=== PATIENT | female | born 1950 | race Caucasian/White ===

== ENCOUNTER → 2018-12-07 | Outpatient (CLI) | payer BC, SELFPAY ==
--- NOTE | 2018-12-07 10:51 | US_ITS ---
STUDY: RENAL ULTRASOUND - COMPLETE REASON FOR EXAM: Female, 68 years old. Recurrent UTI TECHNIQUE: Ultrasound evaluation of the kidneys was performed with real-time and static ernst-scale imaging. COMPARISON: None. FINDINGS: RIGHT KIDNEY: Normal location of the right kidney, which is normal in size. The right kidney measures 10.5 x 4.7 x 5 cm. There is a normal cortex of the right kidney. The renal cortex measures 1.6 cm. There is a rounded slightly heterogeneous hypoechoic exophytic mass in the apical renal cortex measuring 4 x 5 x 3.7 cm. There is vascularity.. There is a mid renal cortical calcification of 0.6 x 0.6 x 0.4 cm. There is no right hydronephrosis. DISTAL RIGHT URETER: There is non-visualization of the distal right ureter. There is no demonstrated right ureterovesical junction calculus. There is a visualized right ureteral jet. LEFT KIDNEY: Normal location of the left kidney, which is normal in size. The left kidney measures 10.5 x 5.3 x 5.5 cm. There is a normal cortex of the left kidney. The renal cortex measures 1.6 cm. There is no left renal mass or cyst. There are no left renal calculi. There is no left hydronephrosis. DISTAL LEFT URETER: There is non-visualization of the distal left ureter. There is no demonstrated left ureterovesical junction calculus. There is a visualized left ureteral jet. BLADDER: The distended urinary bladder has a volume of 229 ml. The empty urinary bladder has a volume of 31 ml. There is a normal wall thickness of the distended urinary bladder. There is no demonstrated mass within the urinary bladder. There are no demonstrated bladder calculi. US/Kidney and Bladder IMPRESSION: Right renal mass suspicious for neoplasm. Contrast imaging with CT dynamic for workup recommended. Nonobstructing right renal calculus. No evidence of hydronephrosis. Normal urinary bladder and visualized left kidney. Electronically Signed: Lindsey Low MD at 6:54 EDT , Service support ,
== END | disposition home or self-care (01) ==
LOC: US 10:49
PROVIDERS: Family Provider Family Medicine; PCP Family Medicine; Referring Provider Urology; Visit Provider Urology
DX: N39.0 Urinary tract infection, site not specified (principal)
CPT/HCPCS: 76770

== ENCOUNTER → 2018-12-31 12:28 | Outpatient (CLI) | payer BC, SELFPAY ==
[2018-12-08 13:45] LABS: Creatinine, Serum 0.89 mg/dL (0.55-1.02); EST Glomerular Filtration Rate 68 mL/min (>60); Est Glom Filt Rate - Afr Amer 82 mL/min (>60)
--- NOTE | 2018-12-31 12:43 | CT_ITS ---
HISTORY: RENAL MASS, right kidney EXAMINATION: CT Abdomen And Pelvis WO/W Contrast TECHNIQUE: Helically acquired images were obtained of the abdomen and pelvis both before and after IV contrast. A radiation dose optimization technique was used for this scan. IV Contrast dosage and agent: 100ml Isovue 300 Oral contrast: None. COMPARISON: Renal ultrasound 12/07/2018 FINDINGS: Lower thorax: No pleural effusion. Small hiatal hernia. Nonspecific mild mural thickening of the anterior wall of the gallbladder fundus. No gallstones seen. Mild fatty infiltration of the liver. Normal hepatic size and normal biliary system. Normal spleen. Fatty infiltration of the pancreas. Both kidneys are normal in position. Initial noncontrast images show no renal or ureteral calculi. Mid pole right kidney partly exophytic cortical mass which is solid and chest mildly heterogenous attenuation. The mass measures approximately 3.9 x 3.9 x 4 cm. The upper pole cortex of the left kidney shows a similar but smaller lesion which enhances and shows heterogenous attenuation. The left renal lesion is partly exophytic and measures 2.7 x 2.7 x 2.7 cm. Bilateral renal excretion of contrast without evidence of hydronephrosis or hydroureter. Adrenal glands are not enlarged. Abdominal aorta is atherosclerotic and is normal in caliber. No ascites or retroperitoneal lymph enlargement. GI tract: No obstruction. Constipation pattern. No pericolonic inflammatory changes. Pelvis: Normal uterine size with small calcified fibroids. No free fluid or lymph node enlargement. Normal urinary bladder. No free fluid or lymph node enlargement. Bones: No acute osseous abnormality. Posterior angulation of the coccyx compatible with chronic change. No suspicious bony lesion. Lower lumbar advanced facet joint arthritis. CT/CT Abd/Pelvis W/WO Contrast IMPRESSION: 1. Right renal midpole 4 cm cortical mass and left renal upper pole 2.7 cm cortical mass. Both masses are solid and enhance. 2. Negative urinary bladder. No hydronephrosis or obstructive uropathy. 3. Nonspecific mild mural thickening of the anterior wall of the gallbladder fundus. 4. Chronic findings include fatty liver, small hiatal hernia, and fibroid uterus. Individualized dose optimization techniques were used for this CT. at 0710 Reported and signed by: Brandon Alvarado MD Electronically Signed: Rogelio Chaves/05/04 at 7:08 EDT Tel , Service support ,
== END ==
PROVIDERS: Family Provider Family Medicine; PCP Family Medicine; Referring Provider Urology; Visit Provider Urology
DX: N28.89 Other specified disorders of kidney and ureter (principal)
CPT/HCPCS: 36415; 74178; 82565; Q9967

== ENCOUNTER → 2020-02-06 14:35 | Outpatient (CLI) | payer BC, SELFPAY ==
--- NOTE | 2020-02-06 14:42 | US_ITS ---
STUDY: RENAL ULTRASOUND - COMPLETE REASON FOR EXAM: Female, 69 years old. GROSS HEMATURIA TECHNIQUE: Ultrasound evaluation of the kidneys was performed with real-time and static ernst-scale imaging. COMPARISON: 12/07/2018 FINDINGS: RIGHT KIDNEY: Normal location of the right kidney, which is normal in size. The right kidney measures 9.3 cm. There is a normal cortex of the right kidney. The renal cortex measures 1.4 cm. 4.3 cm solid isoechoic mass of the lower pole right kidney worrisome for renal cell carcinoma in correlation with renal mass protocol CT is recommended. There are no right renal calculi. There is no right hydronephrosis. DISTAL RIGHT URETER: There is non-visualization of the distal right ureter. There is no demonstrated right ureterovesical junction calculus. There is a visualized right ureteral jet. LEFT KIDNEY: Normal location of the left kidney, which is normal in size. The left kidney measures 10.1 cm. There is a normal cortex of the left kidney. The renal cortex measures 1.7 cm. There is no left renal mass or cyst. There are no left renal calculi. There is no left hydronephrosis. DISTAL LEFT URETER: There is non-visualization of the distal left ureter. There is no demonstrated left ureterovesical junction calculus. There is a visualized left ureteral jet. BLADDER: The distended urinary bladder has a volume of 244 ml. The empty urinary bladder has a volume of ml. There is a normal wall thickness of the distended urinary bladder. There is no demonstrated mass within the urinary bladder. There are no demonstrated bladder calculi. US/Kidney and Bladder IMPRESSION: 4.3 cm solid mass of the lower pole the right kidney and correlation with renal mass protocol CT is recommended. Electronically Signed: Denver Gamez MD at 16:38 EDT Tel , Service support ,
== END ==
PROVIDERS: PCP Family Medicine; Visit Provider Urology
DX: R31.0 Gross hematuria (principal); R10.9 Unspecified abdominal pain
CPT/HCPCS: 76770

== ENCOUNTER 2021-08-12 18:25 | Inpatient (IN) | payer BC, MEDICARE, SELFPAY ==
[2021-08-12] VITALS (11 sets, daily range): BP systolic 108–152; BP diastolic 63–86; PULSE 63–74; RESP 18–22; TEMP 36.5–36.9; O2SAT 71–100; BMI 43.4; BMI 40.0
--- NOTE | 2021-08-12 18:28 | EDS_ITS ---
HPI History of Present Illness Chief Complaint: Chest Pain Informant: patient and EMS Narrative Narrative: History is focused on major points as Mail Truck Driver is almost ready for the patient. She started with anterior chest pressure at about 5:00. She had some dyspnea. She had some diaphoresis. No vomiting. She has never had this before. She has a history of high blood pressure but no diabetes. No known high cholesterol. No known family history of significant heart disease. She states her pain is still there but better. She was given 4000 of heparin, Brilinta aspirin by EMS prior to arrival. For that reason it was not repeated here. Nothing specifical ly has made her pain better or worse. It radiates a little bit up toward her shoulders. It does not go through to her back. It has not migrated. [facility] Medical History Hypertension Seizure Home Medications levetiracetam 1,000 mg PO DAILY 08/12/21 [History Last Taken Unknown] metoprolol succinate 25 mg PO DAILY 08/12/21 [History Last Taken Unknown] Allergy/AdvReac Type Severity Reaction Status Date / Time codeine Allergy Other Verified 08/12/21 18:33 Surgical History H/O knee surgery History of carpal tunnel surgery History of kidney surgery Social History Smoking Status: Never smoker ROS ROS ED Constitutional Constitutional ED: Denies fever(s) Eyes Eyes: Denies blurry vision or change in vision ENT ENT ED: Denies rhinorrhea Cardiovascular Cardiovascular: Denies as per HPI Respiratory/Chest Respiratory/Chest: Reports dyspnea; Denies cough Gastrointestinal Gastrointestinal: Denies abdominal pain, nausea or vomiting Genitourinary Genitourinary ED: Denies dysuria Musculoskeletal Musculoskeletal: Denies back pain, myalgias or neck pain Integumentary Denies rash Neurologic Neurologic: Denies headache(s) or paresthesias Endocrine Endocrinology: Denies polydipsia or polyuria Hematologic/Lymphatic Hematologic/Lymphatic: Denies easy bleeding or easy bruising Allergic/Immunologic Allergic/Immunologic ED: Denies mouth swelling or urticaria EXAM Physical Exam Const Positive well nourished and well developed Constitutional Narrative: Patient is in no acute distress but she does look like she had recent diaphoresis. General Appearance ED: well developed HEENT normocephalic and atraumatic Eyes General Eye ED: Negative for pale conjunctiva or scleral icterus Neck supple and no JVD Chest Wall inspection of chest normal and palpation of chest normal Resp normal respiratory effort Resp Narrative: I hear no basilar rales. Effort and Inspection: respiratory distress Auscultation: Negative for rales Cardio regular rate and regular rhythm GI normal to inspection, nondistended, normoactive bowel sounds, soft to palpation and non-tender Back/Spine no CVA tenderness Extremity normal to inspection Extremity Narrative: Good pulses x4. General Extremety ED: Negative for tenderness Neuro Sensorium / Orientation: awake, alert and other Psych mental status grossly normal Skin no rashes or lesions noted and no wounds Skin Narrative: Patient looks like she may have been diaphoretic recently but is no longer. Heart Score History: Highly Suspicious ECG: Significant ST-Depression Age: >/= 65 years Risk Factors: 1 or 2 Risk Factors Score: 7 MDM MDM MDM Narrative Medical decision making narrative: EMS had to transmitted her EKG. This had been seen prior to patient arrival. STEMI are already been called. We had consulted with them. They gave appropriate medications. Patient was in the department for short period of time until Mail Truck Driver was ready. I explained the procedure and the reasons for the expediting her care. She understood these. Her repeat EKG done here still does show a high lateral [place] with ST elevation in lead I and aVL with reciprocal changes in 3 and aVF. EKG Initial EKG: Comments: EKG done for chest pain read by me shows normal sinus rhythm with high lateral acute [place] changes with elevation in 1 and aVL with reciprocal depression in 3 and aVF. No ventricular ectopy. CT interval, QRS duration and QTc normal. Critical Care Time Critical Care Time: Yes Critical care time (excluding procedures): 30-74 minutes and - (Discussion with EMS, transmission to ops manager in discussion, discussion with hospitalist, discussion with patient regarding plan and illness. Total critical care time of 33 minutes.) Discharge Plan Dx/Rx/DC Orders Clinical Impression: ST elevation (STEMI) myocardial infarction Disposition Disposition: Acute Care Hospital [facility] Discharge Date/Time: 08/12/21 18:36
--- NOTE | 2021-08-12 19:01 | CM.ED ---
RENATA Note: Referral Source: STEMI Alert Referral Reason: STEMI Alert SW met with patient briefly prior to her going to cardiac cath technologist. Patient inquired about her and this brief writer stated that this brief writer will take patient's to cardiac cath technologist when he arrives. RENATA made triage staff aware of patient's being on his way to the ED and to contact brief writer. RENATA met with patient's , Hal. SW took Hal to the catheterization laboratory technician and provided emotional support. ED staff updated. Plan: admit to ICU Jenny ROSALES
--- NOTE | 2021-08-12 19:28 | EKG12_ITS ---
Test Reason : CP Blood Pressure : / mmHG Vent. Rate : 065 BPM Atrial Rate : 065 BPM P-R Int : 156 ms QRS Dur : 102 ms QT Int : 450 ms P-R-T Axes : 054 -07 009 degrees QTc Int : 468 ms Normal sinus rhythm Lateral injury pattern ACUTE IN / STEMI Abnormal ECG Confirmed by HEATHER NOGUERA, ALEXANDRE ([id number]), editor managing newspaper TOM SORENSON ([id number]) on 08/14/2021 11:44:02 AM Referred By: Pako Engel Confirmed By:ALEXANDRE ROMERO MD
--- NOTE | 2021-08-12 19:45 | EKG12_ITS ---
Test Reason : POST CATH Blood Pressure : / mmHG Vent. Rate : 070 BPM Atrial Rate : 070 BPM P-R Int : 160 ms QRS Dur : 090 ms QT Int : 432 ms P-R-T Axes : 039 028 066 degrees QTc Int : 466 ms Sinus rhythm with Premature atrial complexes Low voltage QRS Cannot rule out Anterior infarct , age undetermined Abnormal ECG Confirmed by HEATHER NOGUERA, ALEXANDRE ([id number]), scientific publications editor TOM SORENSON ([id number]) on 08/14/2021 12:20:58 PM Referred By: Pako Engel Confirmed By:ALEXANDRE ROMERO MD
--- NOTE | 2021-08-12 19:57 | CON.PCM.CA_ITS ---
Assessment & Plan Assessment/Plan (1) ST elevation (STEMI) myocardial infarction: QUALIFIERS: Involved coronary artery: LAD coronary artery Qualified Code(s): I21.02 - ST elevation (STEMI) myocardial infarction involving left anterior descending coronary artery PLAN: Status post drug-eluting stent to the LAD. We will keep the patient on aspirin, Brilinta, Coreg, statin. She does have LV dysfunction at this time. She appears to have had some renal issues in the past. We will hold off on the STU inhibitor's for now as a result. We will check a 2D echo this admission and if she has LV dysfunction she will need another evaluation in about 3 months. HPI Consult Data Date of Consult: 08/12/21 HPI Narrative HPI Narrative: KIRT MATHIS, is a 71 F who presents with chest pain. Patient was found to have ST elevation in lead I and aVL and a STEMI alert was called. She was brought emergently to the cardiac [employer] Plant Supervisor and underwent coronary angiography which revealed 95% stenosis in the mid LAD that was treated with a drug-eluting stent. Patient tolerated the procedure well. She is pain-free at the end of the procedure. She is being admitted to the CCU for further management of her ST elevation MT. Review of systems: All systems reviewed. All else is negative except that in the HPI. [facility] Medical History Hypertension Seizure Home Medications levetiracetam 1,000 mg PO DAILY 08/12/21 [History Last Taken Unknown] metoprolol succinate 25 mg PO DAILY 08/12/21 [History Last Taken Unknown] Allergy/AdvReac Type Severity Reaction Status Date / Time codeine Allergy Other Verified 08/12/21 18:33 Surgical History H/O knee surgery History of carpal tunnel surgery History of kidney surgery Social History Smoking Status: Never smoker Physical Exam Const alert and oriented x3 Orientation / Consciousness: awake HEENT normocephalic Eyes no scleral icterus Neck supple Resp normal respiratory effort Cardio regular rate Skin no rashes or lesions noted Neuro oriented x3 Psych mental status grossly normal Risk Stratification Risk Stratification Applicable: No Charges/Coding Visit Charges Inpatient E&M: 85970 Init Hosp L3 Objective Data Vital Signs: Vital Signs Temp Pulse Resp BP Pulse Ox 97.7 F L 64 18 152/86 H 97 08/12/21 18:36 08/12/21 18:36 08/12/21 18:36 08/12/21 18:36 08/12/21 18:36 Oxygen Delivery Method Room Air Weight: 237 lb 3.478 oz Body Mass Index (BMI) 43.4 Cardiology Labs/Tests Rhythm: EKG: ECHO: Stress Test: Cardiac Cath: PCI: CT Surgery: Holter monitor: EPS: PPM: CXR: Chest CT Scan:
--- NOTE | 2021-08-12 20:00 | ECHOD_ITS ---
Reason For Study: CAD Procedure This was a 2D Doppler, Color Flow transthoracic echocardiogram. The study was technically difficult. Exam performed portable in ICU/CCU. Left Ventricle Based upon the 2D echocardiographic images obtained there appears to be grossly normal left ventricular size, wall motion, and systolic function. The estimated ejection fraction is 55 %. Diastolic function is indeterminate. Right Ventricle Based upon the 2D echocardiographic images obtained there appears to be grossly normal right ventricular size and systolic function. Atria The left atrium is mildly enlarged. Normal right atrium. No doppler evidence for ASD. Mitral Valve There is no mitral annular calcification. Normal mitral valve. Mild (1+) mitral valve insufficiency. Tricuspid Valve Normal tricuspid valve. Mild tricuspid valve insufficiency. Right ventricular systolic pressure estimated to be 33 mmHg. Aortic Valve Trisinus/trileaflet aortic valve. Mild focal aortic valve calcification. Mild aortic stenosis. Pulmonic Valve The pulmonic valve is not well visualized. Trivial pulmonic valve insufficiency. Great Vessels Normal sized aortic root. Pericardium/Pleural Trivial pericardial effusion. There are no echocardiographic indications of cardiac tamponade. MMode/2D Measurements & Calculations LVIDd: 4.5 cm IVSd: 1.1 cm LVOT diam: 2.0 cm LVIDs: 3.0 cm LVPWd: 0.95 cm LVOT area: 3.1 cm2 RVDd: 3.6 cm FS: 31.7 % Ao root diam: 3.6 cm LAV(MOD-bp): 41.2 ml LA A4 area: 14.3 cm2 LAV(MOD-bp) Indexed: 20.8 ml/m2 LAV(MOD-sp2): 40.3 ml LAV(MOD-sp4): 35.3 ml LA dimension(2D): 4.2 cm RA A4 area: 11.1 cm2 Doppler Measurements & Calculations MV E max delvin: 90.2 cm/sec Lat Peak E' Delvin: 6.7 cm/sec Med Peak E' Delvin: 5.9 cm/sec MV A max delvin: 107.5 cm/sec E/E' lat: 13.4 E/E' med: 15.2 MV E/A: 0.84 MV V2 max: 106.8 cm/sec Ao V2 max: 193.2 cm/sec LV V1 max: 115.2 cm/sec MV max P.6 mmHg Ao max P.0 mmHg LV V1 max P.3 mmHg MV V2 mean: 64.7 cm/sec Ao V2 mean: 139.3 cm/sec LV V1 mean P.1 mmHg MV mean P.8 mmHg Ao mean P.5 mmHg LV V1 mean: 84.3 cm/sec MV V2 VTI: 33.7 cm Ao V2 VTI: 44.4 cm LV V1 VTI: 26.3 cm MVA(VTI): 2.4 cm2 JOSE MANUEL(I,D): 1.9 cm2 JOSE MANUEL(V,D): 1.9 cm2 SV(LVOT): 82.4 ml TR max delvin: 274.0 cm/sec MV P1/2t-pr_phl: 129.4 msec TR max P.0 mmHg ECHO/Echo Complete Interpretation Summary The study was technically difficult. Based upon the 2D echocardiographic images obtained there appears to be grossly normal left ventricular size, wall motion, and systolic function. The estimated ejection fraction is 55 %. The left atrium is mildly enlarged. Mild (1+) mitral valve insufficiency. Mild tricuspid valve insufficiency. Mild aortic stenosis. Trivial pulmonic valve insufficiency. Trivial pericardial effusion. There are no echocardiographic indications of cardiac tamponade. Right ventricular systolic pressure estimated to be 33 mmHg. Diastolic function is indeterminate. Ordering Physician: Pako Engel Referring Physician: Pako Engel Performed By: Linda Robin, [facility], RVT
[2021-08-12 21:07] LABS: Absolute Lymphocyte Count 1.19 X10^3/uL (0.83-4.51); Absolute Neutrophil Count 9.5 X10^3/uL (2.0-7.7); Basophil# 0.02 X10^3/uL; Basophil% 0.2 % (0-1); Eosinophil# 0.04 X10^3/uL; Eosinophils% 0.3 % (0-5); Hematocrit 33.3 % (37-47); Lymphocyte # 1.19 X10^3/ul (0.83-4.51); Lymphocyte % 10.4 % (19-41); Mean Corpuscular Hgb 29.6 pg (27.0-32.0); Mean Corpuscular Volume 89.5 fL (81-99); Mean Platelet Vol. 11.2 fl (6.2-12.0); Monocyte# 0.62 X10^3/uL; Monocyte% 5.4 % (0-10); NRBC Flagged by Analyzer 0 % (0-5); Neutrophil # 9.53 X10^3/uL (2.7-7.7); Neutrophil % 83.1 % (47-70); Platelet Count 264 K/mm3 (150-450); RBC Distribution Width CV 12.5 % (11.6-14.6); RBC Distribution Width SD 40.6 fl (35.1-43.9); Red Blood Count 3.72 M/mm3 (4.2-5.4); White Blood Count 11.5 K/mm3 (4.4-11.0)
[2021-08-12 21:15] LABS: International Normalized Ratio 1.3; Prothrombin Time (Protime)PT. 15.9 SECONDS (11.7-14.9)
[2021-08-12 21:24] LABS: Anion Gap 7 (5-15); BUN 25 mg/dL (7-18); Calcium,Total 8.8 mg/dL (8.5-10.1); Chloride 110 mmol/L (98-107); Creatinine, Serum 0.81 mg/dL (0.55-1.02); EST Glomerular Filtration Rate 75 mL/min (>60); Est Glom Filt Rate - Afr Amer 91 mL/min (>60); Estimated Creatinine Clearance 51.84 ml/min; Glucose 123 mg/dL (74-106); Potassium 3.7 mmol/L (3.5-5.1); Sodium Level 139 mmol/L (136-145); Troponin-I HS 5910 pg/mL (3.0-54.0)
[2021-08-12 21:37] LABS: Partial Thromboplast Time > 250.0 Seconds (24.1-36.2)
[2021-08-12] MEDS: Atorvastatin Calcium 40 MG Tablet PO (22:32)
[2021-08-12] MEDS: TICAGRELOR 90 MG TABLET PO (22:32)
[2021-08-12] MEDS: 0.9% Normal Saline 1,000 ML 100 ML IV (22:32)
[2021-08-12] MEDS: Carvedilol 3.125 MG TABLET PO (22:32)
[2021-08-12] MEDS: levETIRAcetam 750 MG Tablet 1500 MG PO (23:05)
[2021-08-13] VITALS (16 sets, daily range): BP systolic 100–129; BP diastolic 57–76; PULSE 53–77; RESP 10–21; TEMP 36.6–36.8; O2SAT 91–100
--- NOTE | 2021-08-13 00:17 | HP.PCM_ITS ---
HPI - General General Date of Admission: 08/12/21 HPI Narrative KIRT MATHIS, is a 71 F who presents emergency room with acute chest pain. Onset of symptoms began this evening at 5:00. When she states she felt a strong heaviness over her chest and called for her 's assistance. The pain was nonradiating substernal chest pain. 911 was called and patient was transported by ambulance to the hospital. She was diagnosed with ST elevation OR and transferred to the cardiac catheterization lab where a 95% occlusion of the left anterior descending artery was diagnosed and stented with a drug-eluting stent. Patient tolerated procedure well and was transferred to the ICU for follow-up c are. Patient has no chest pain at this time. She had no previous past cardiac history but does have a history of cryoablation surgery to both kidneys at [facility] sometime ago. Patient denies any shortness of breath, fever or chills and no nausea vomiting or diarrhea at this time. She is resting comfortably in the intensive care unit post procedure and will need routine cardiac rehab following her discharge. [facility] Medical History (Updated 08/13/21 @ 00:[address] Gary Alcantar MD) Hypertension Seizure Home Medications levetiracetam 1,000 mg PO DAILY 08/12/21 [History Last Taken Unknown] metoprolol succinate 25 mg PO DAILY 08/12/21 [History Last Taken Unknown] Allergy/AdvReac Type Severity Reaction Status Date / Time codeine Allergy Other Verified 08/12/21 18:33 Family History no significant family his Surgical History H/O knee surgery History of carpal tunnel surgery History of kidney surgery Social History (Updated 08/12/21 @ 21:06 by Amrik Hammonds) adopted: No household members: spouse housing: house number of children: 2 financial difficulty paying for basics: not applicable service: No current occupational status: retired current occupational exposures/hazards: No pets and animals: No leisure activities: other history of recent travel: No sexually active: Yes do you think of yourself as: straight/heterosexual Smoking Status: Never smoker ROS Constitutional Constitutional: Denies anorexia or chills ENT HEENT: Denies abnormal hearing Cardiovascular Cardiovascular: Reports chest pain Respiratory/Chest Respiratory/Chest: Denies cough Gastrointestinal Gastrointestinal: Denies abdominal pain Genitourinary Genitourinary: Denies dysuria Musculoskeletal Musculoskeletal: Denies back pain Integumentary Integumentary: Denies dry skin Neurologic Neurologic: Denies abnormal gait Psychiatric Psychiatric: Denies anxiety Vital Signs Vital Signs Vital Signs: 08/12/21 18:26 08/12/21 18:36 08/12/21 20:00 Temperature 97.7 F L 97.7 F L 98.4 F Temperature Source Oral Oral Temporal Pulse Rate 64 64 73 Pulse Strength Respiratory Rate 18 18 22 H Respiratory Effort Normal Non-Labored Respiratory Pattern Normal Blood Pressure 152/86 H 152/86 H 130/85 H Blood Pressure Mean 108 108 100 Blood Pressure Source Monitor Blood Pressure Position Semi-Fowlers Blood Pressure Location Left Arm Pulse Ox 95 97 97 Oxygen Delivery Method Room Air Room Air Room Air 08/12/21 20:04 08/12/21 20:20 08/12/21 20:30 Temperature Temperature Source Pulse Rate 74 69 Pulse Strength Respiratory Rate 20 H Respiratory Effort Respiratory Pattern Blood Pressure 151/81 H Blood Pressure Mean 104 Blood Pressure Source Monitor Blood Pressure Position Semi-Fowlers Blood Pressure Location Left Arm Pulse Ox 95 Oxygen Delivery Method Room Air Room Air 08/12/21 20:38 08/12/21 22:00 08/12/21 23:38 Temperature Temperature Source Pulse Rate 68 74 Pulse Strength Normal (2+) Respiratory Rate 19 H Respiratory Effort Respiratory Pattern Blood Pressure 126/74 H Blood Pressure Mean 91 Blood Pressure Source Monitor Blood Pressure Position Semi-Fowlers Blood Pressure Location Right Arm Pulse Ox 71 Oxygen Delivery Method Room Air Weight Weight: 218 lb 14.704 oz Body Mass Index (BMI) 40.0 Physical Exam Const oriented x3 General Appearance: cooperative HEENT head/scalp atraumatic Eyes PERRL Neck supple Lymph Lymphatic: no lymphadenopathy noted Resp normal respiratory effort and clear to auscultation bilaterally Cardio regular rate, regular rhythm, S1 normal heart sound and S2 normal heart sound GI normal to inspection, nondistended, normoactive bowel sounds Extremity no clubbing, cyanosis or edema Skin General Skin Exam: turgor normal Neuro CN's II-XII intact bilaterally Psych affect normal Results Lab / Micro Data Result Diagrams: 08/12/21 19:30 08/12/21 19:30 Labs: Laboratory Results - last 24 hr 08/12/21 19:30: WBC 11.5 H, RBC 3.72 L, Hgb 11.0 L, Hct 33.3 L, MCV 89.5, MCH 29.6, MCHC 33.0, RDW Std Deviation 40.6, RDW Coeff of Leena 12.5, Plt Count 264, MPV 11.2, Immature Gran % (Auto) 0.600, Neut % (Auto) 83.1 H, Lymph % (Auto) 10.4 L, [place] % (Auto) 5.4, Eos % (Auto) 0.3, Baso % (Auto) 0.2, Absolute Neuts (auto) 9.5 H, Absolute Lymphs (auto) 1.19, Nucleated RBC % 0 08/12/21 19:30: PT 15.9 H, INR 1.3, APTT > 250.0 H* 08/12/21 19:30: Sodium 139, Potassium 3.7, Chloride 110 H, Carbon Dioxide 22.0, Anion Gap 7, BUN 25 H, Creatinine 0.81, Estim Creat Clear Calc 51.84, Est GFR (MDRD) Af Amer 91, Est GFR (MDRD) Non-Af 75, BUN/Creatinine Ratio 31.0 H, Glucose 123 H, Calcium 8.8, Troponin I High Sens 5910 H* Assessment & Plan Assessment/Plan (1) ST elevation (STEMI) myocardial infarction: QUALIFIERS: Involved coronary artery: LAD coronary artery Qualified Code(s): I21.02 - ST elevation (STEMI) myocardial infarction involving left anterior descending coronary artery PLAN: 1. ST elevation OR?admit patient to ICU Dr. Engel is on consult and performed the procedure to stent her LAD. Routine post stent procedure labs have been ordered. 2. Seizure disorder?continue Keppra 3. 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 DVT prophylaxis?patient is anticoagulated Charges/Coding Visit Charges Inpatient E&M: 62783 Init Hosp L3
[2021-08-13] MEDS: Menthol/Lanolin/Calamine/Znox 113 GM Tube 1 APPLIC TOPICAL (04:16)
[2021-08-13 05:00] LABS: Hematocrit 34.2 % (37-47); Hemoglobin 11.4 g/dL (12.0-15.0); Mean Corp Hgb Conc 33.3 g/dL (32-36); Mean Platelet Vol. 10.8 fl (6.2-12.0); Platelet Count 252 K/mm3 (150-450); RBC Distribution Width CV 12.8 % (11.6-14.6); White Blood Count 8.1 K/mm3 (4.4-11.0)
[2021-08-13 05:18] LABS: International Normalized Ratio 1.1; Prothrombin Time (Protime)PT. 13.2 SECONDS (11.7-14.9)
[2021-08-13 05:19] LABS: Partial Thromboplast Time 26.9 Seconds (24.1-36.2)
[2021-08-13 05:29] LABS: AST(SGOT) 112 U/L (15-37); Alanine Aminotransfer ALT/SGPT 30 U/L (13-56); Alkaline Phosphatase 62 U/L (45-117); Anion Gap 7 (5-15); BUN 19 mg/dL (7-18); Calcium,Total 8.6 mg/dL (8.5-10.1); Chloride 110 mmol/L (98-107); Creatinine, Serum 0.79 mg/dL (0.55-1.02); EST Glomerular Filtration Rate 77 mL/min (>60); Est Glom Filt Rate - Afr Amer 93 mL/min (>60); Estimated Creatinine Clearance 41.99 ml/min; Globulin 3.1 g/dL (2.2-4.2); Glucose 124 mg/dL (74-106); Potassium 3.6 mmol/L (3.5-5.1); Protein, Total 6.1 g/dL (6.4-8.2); Sodium Level 141 mmol/L (136-145)
--- NOTE | 2021-08-13 10:08 | CL.I_ITS ---
Patient Name: KIRT MATHIS Study Date: 08/12/2021 Performing: Arline Engel MD Ht: 62 inches 157.48 cm : 1950 Wt: 220.3 lbs 99.79 kg Age: 71 Gender: female BSA: 1.99 PROCEDURE(S) PERFORMED DC01-([id number])LHC/COR/LV IC16-([id number]/[id number])AMI, ENA OR PTCA, ARTERY/GRAFT, SINGLE VESSEL CLINICAL PROFILE AND CO-MORBIDITIES Indications: ACS <= 24 hrs Heart Failure: None Stress/Imaging Stress/Image Study Performed: No CAD Presentations: STEMI. Symptom onset Date/Time: 08/12/21 Time Not Available CONCLUSIONS CAD as described. Moderate LV dysfunction, EF is 40-45%. No significant aortic stenosis. Trivial mitr al regurgitation. Successful ENA to mLAD RECOMMENDATIONS DESCRIPTION OF PROCEDURE The patient arrived to the procedure lab. The risks and benefits of the procedure as well as a full d escription of our services here and lack of surgical backup were fully explained to the patient and/o r their significant other prior to the catheterization. The Timeout was completed, verifying the troy ect patient and procedure. The patient's procedural site was prepped and draped in the usual fashion. Local anesthetic was given subcutaneously to right radial region with Lidocaine 2%. Using a modified Seldinger technique, arterial access was obtained via the right radial artery, a 6Fr sheath was inse rted.. Left Ventriculography was performed in JOSEPH projection using a 5 Fr. JR 4. Right Coronary Sydnee ry selective angiography was then performed in multiple views using a 5 Fr. JR 4 catheter XB 3.0 Guide catheter was inserted and engaged into the LCA. BMW Guide wire was advanced to the L AD Emerge 2.00x12 Balloon catheter was inserted. PTCA balloon inflated at 10 atms for 21 secs. Angiog waldo performed post balloon dilatation. [facility] 2.25x13 Drug Eluting stent was inserted. Angiog waldo performed post stent deployment. The arterial sheath was pulled and a TR Band was applied for h emostasis w/ 10ml air CORONARY ANGIOGRAPHY DOMINANCE: Right Dominant LEFT HEART ASSESSMENT Left Ventricular Ejection Fraction: by LV Gram 40-45 % Anterior Hypokinesis - Severe LEFT MAIN: Mild luminal irregularities LEFT ANTERIOR DESCENDING ARTERY: PROX LAD: 20-30 % Stenosis MID LAD: 95 % Stenosis CIRCUMFLEX ARTERY: Mild luminal irregularities RIGHT CORONARY ARTERY: PROX RCA: 30 % Stenosis DISTAL RCA: 30 % Stenosis RT PLV: Moderate to severe diffuse disease. Small vessel VALVE FINDINGS: No Aortic Valve Stenosis Mitral Valve Insufficiency - Grade 1 INTERVENTION INFORMATION LESION SITE: LAD (Mid) Lesion Complexity: High/C, chronic total occlusion: No, lesion at bifurcation: No, thrombus present: Yes, lesion length: 12 mm, culprit lesion: Yes, Previously treated lesion: No Pre Stenosis: 95 % Pre intervention SANKET flow: 2 PROCEDURE: Drug Eluting Stent with pre dilatation. Post Stenosis: 0 % Post intervention SANKET flow: 3 Lesion Devices: Cardinal 6 Fr XB3.0 100cm Guide Catheter Cabrera .014 BMW [place] Straight 190cm Sly Sci EMERGE MR 2.00x12 BALLOON Biotronik Orsiro Devol MR ENA 2.25x13 COMPLICATIONS No Complications PROCEDURE MEDICATIONS Oxygen: 2 L/min via nasal cannula Heparin given IA 08/12/2021 19:04:47 Heparin 1000 unit(s) IV 08/12/2021 19:22:41 Verapamil 2.5mg, Ntg 100mcgs, 3000 units of Heparin given IA 08/12/2021 19:04:47 IV Bolus: .9 NaCl 250 ml total 08/12/2021 19:50:09 SUMMARY OF HEMODYNAMIC DATA Time AIR REST ECG 18:46:04 AO 99/66 (85) SA 19:05:16 LV 134/1, 19 19:19:20 LV 127/1, 19 19:19:27 LV 123/3, 17 19:20:05 Signed By Arline Engel MD On 08/13/2021 10:08:07 Arline Engel MD
--- NOTE | 2021-08-13 10:29 | CASEMGMT ---
FIORDALIZA CASEY NEWS CLERK CM to room to meet with patient for initial transition planning/care coordination assessment. FIORDALIZA CASEY introduced self and role at [facility]. Pt voices understanding and consents to assessment at this time. Pt sitting up in recliner chair in room in no distress at this time. in room visiting. Pt is A/O at this time and answers all questions appropriately. Care providers, pharmacy, and demographics verified/updated at this time. PCP: Dr Raffi Zimmer Specialists: Dr Eid--chassis mechanic in [place] (per pt/, he will be retiring soon and they wish to have pt start going to [facility] now), Dr Borges-hog worker @ , [facility] Arthritic Strong, Dr Fay-neurologist @ [facility] Preferred Pharmacy: [facility] Retail Insurance: [place] Prescription Benefit: none. Pt will be switching insurances in 2021 and will have rx coverage. Discussed Brilinta and savings card--they were made aware [facility] Retail would apply 30-day savings card. FIORDALIZA CASEY advised for them to notify chassis mechanic if refills are not affordable so other options can be discussed. Pt had questions re: Brilinta and side effects and inquiring about other medications she will be d/c'd home on. FIORDALIZA CASEY placed call to pharmacy to inform them pt would like education on medications. Living Will/HPOA: Has both LW and HPOA, who is her , Guy. They were made aware copies are not on file @ [facility] LNOK: , Guy Living Arrangements: Lives w/ in ranch-style home. 3-5 steps to enter. Denies difficulty w/any stairs. Independent. Transportation: Pt does not drive. provides all transportation. They state concern w/having transportation to OP Cardiac Rehab. They were provided w/[facility] Van transportation info and questions answered. DME: Has a BP machine. Denies need for further DME HHC/SNF: No hx of either. No needs identified. Pt wishes to return home and states has no concerns with going home at time of discharge. CM to follow for any discharge planning/needs. Pt/ voice no further concerns/needs at this time. Advised them to ask for CM if any further questions/concerns/needs arise. They voice understanding. PLAN: Home w/spousal support and discharge plans in place. Jocelyn AMBROSE RN, CM
--- NOTE | 2021-08-13 11:15 | CRPHASE1 ---
Patient Communication PHII Cardiac Rehab Discussed with Patient:: Yes Guide to Cardiac Rehab Given to Patient:: Yes Cardiac Rehab Facility Choice List Given to Patient:: Yes Choice Program [facility] CR PHII:: Communication Given to CR, Refer to [facility] Relations Coordinator:: Pako Engel Phase II Cardiac Rehab:: Yes Sessions:: 36 sessions - 2 days/wk, 18 weeks Cardiac Rehabilitation Info Cardiac Rehabilitation Program Information: Cardiac Rehabilitation is important for patients like you who are recovering from a heart problem. Cardiac rehabilitation programs are recognized as integral to the continued care of the patient with coronary heart disease. The cardiac rehabilitation program is designed to optimize a patient's physical, psychological, and social functioning. Health healthcare administrator work in cardiac rehabilitation programs and assist you with getting the treatments you need to get stronger and healthier - like exercise, healthy eating habits, and medications. Cardiac rehabilitation has been show to help people with heart problems live longer and have better life enjoyment than people who do not go to cardiac rehabilitation. Please contact the Cardiac Rehabilitation Program at [facility] at in two weeks if you have not heard from them.
--- NOTE | 2021-08-13 11:15 | CRPH1.INSTRU ---
General Education CAD and cardiac anatomy and function:: Patient communicates acknowledgment Explanation of diagnoses and procedures:: Patient communicates acknowledgment Sign/Symptoms of DE:: Patient communicates acknowledgment Antiplatelet therapy: Patient communicates acknowledgment Proper use of NTG-SL: Patient communicates acknowledgment Emergency procedures and activation of EMS: Patient communicates acknowledgment Compliance of all prescribed medications: Patient communicates acknowledgment - Book given & instruction by farm labor contractor RN
[2021-08-13] MEDS: levETIRAcetam 1,000 MG Tablet 1000 MG PO (11:24)
[2021-08-13] MEDS: Carvedilol 3.125 MG TABLET PO ×2 (11:24→22:52)
[2021-08-13] MEDS: TICAGRELOR 90 MG TABLET PO ×2 (11:24→22:52)
[2021-08-13] MEDS: Aspirin E.C. 81 MG Tablet PO (11:24)
--- NOTE | 2021-08-13 14:09 | PN.HOSP_ITS ---
Subjective Subjective Patient seen and examined. She came in with chest pain was diagnosed with STEMI. STEMI alert was called and she had cardiac cath with placement of drug- eluting stent in the LAD. She had no complaints at time of review and said her chest pain had resolved. She had no other complaints and review of systems otherwise negative. She has remained hemodynamically stable. Objective Data Objective Data Vital Signs: Vital Signs Temp Pulse Resp BP Pulse Ox 98.2 F 71 15 114/75 97 08/13/21 06:00 08/13/21 14:00 08/13/21 14:00 08/13/21 14:00 08/13/21 14:00 Oxygen Delivery Method Room Air Weight: 218 lb 14.704 oz Body Mass Index (BMI) 40.0 Intake & Output: Intake and Output for Last 24 Hours 08/11/21 08/12/21 08/13/21 23:59 23:59 23:59 Intake Total 2019 Output Total 1650 / 1650 Balance 370 / 370 Lab / Micro Data Result Diagrams: 08/13/21 04:25 08/13/21 04:25 Labs: Laboratory Results - last 24 hr 08/12/21 19:30: WBC 11.5 H, RBC 3.72 L, Hgb 11.0 L, Hct 33.3 L, MCV 89.5, MCH 29.6, MCHC 33.0, RDW Std Deviation 40.6, RDW Coeff of Leena 12.5, Plt Count 264, MPV 11.2, Immature Gran % (Auto) 0.600, Neut % (Auto) 83.1 H, Lymph % (Auto) 10.4 L, [place] % (Auto) 5.4, Eos % (Auto) 0.3, Baso % (Auto) 0.2, Absolute Neuts (auto) 9.5 H, Absolute Lymphs (auto) 1.19, Nucleated RBC % 0 08/12/21 19:30: PT 15.9 H, INR 1.3, APTT > 250.0 H* 08/12/21 19:30: Sodium 139, Potassium 3.7, Chloride 110 H, Carbon Dioxide 22.0, Anion Gap 7, BUN 25 H, Creatinine 0.81, Estim Creat Clear Calc 51.84, Est GFR (MDRD) Af Amer 91, Est GFR (MDRD) Non-Af 75, BUN/Creatinine Ratio 31.0 H, Glucose 123 H, Calcium 8.8, Troponin I High Sens 5910 H* 08/13/21 04:25: WBC 8.1, RBC 3.80 L, Hgb 11.4 L, Hct 34.2 L, MCV 90.0, MCH 30.0, MCHC 33.3, RDW Std Deviation 42.0, RDW Coeff of Leena 12.8, Plt Count 252, MPV 10.8 08/13/21 04:25: PT 13.2, INR 1.1, APTT 26.9 08/13/21 04:25: Sodium 141, Potassium 3.6, Chloride 110 H, Carbon Dioxide 24.0, Anion Gap 7, BUN 19 H, Creatinine 0.79, Estim Creat Clear Calc 41.99, Est GFR (MDRD) Af Amer 93, Est GFR (MDRD) Non-Af 77, BUN/Creatinine Ratio 24.0 H, Glucose 124 H, Calcium 8.6, Total Bilirubin 0.50, AST 112 H, ALT 30, Alkaline Phosphatase 62, Total Protein 6.1 L, Albumin 3.0 L, Globulin 3.1, Albumin/Globulin Ratio 1.0 Physical Exam Const alert, oriented x3 and no apparent distress Exam Limitations: no limitations HEENT head/scalp atraumatic and moist oral mucous membranes Head and Scalp: normocephalic Eyes PERRL, EOMs intact bilaterally and conjunctivae normal Neck no lymphadenopathy and supple Resp normal respiratory effort, no retractions, no use of accessory muscles and clear to auscultation bilaterally Cardio regular rate, regular rhythm, S1 normal heart sound, S2 normal heart sound and no murmurs GI normal to inspection, nondistended, normoactive bowel sounds, soft to palpation, non-tender and non-distended Extremity normal to inspection, full ROM and no clubbing, cyanosis or edema Peripheral Pulses: Yes pulses 2+ throughout Skin no rashes or lesions noted Neuro oriented x3, CN's II-XII intact bilaterally and moves all extremities Sensorium / Orientation: awake and alert Psych affect normal Assessment & Plan Assessment/Plan (1) ST elevation (STEMI) myocardial infarction: QUALIFIERS: Involved coronary artery: LAD coronary artery Qualified Code(s): I21.02 - ST elevation (STEMI) myocardial infarction involving left anterior descending coronary artery PLAN: #STemi * s/p cardiac cath which showed 95% blockage in the LAD, with insertion of drug eluting stent in sadie LAD * on aspirin, brilinta and high intensity statin. * cardiology on board * 2D echo pending * #Hypertension: #History of seizure disorder: On Keppra #History of bilateral nonmalignant cysts: Stable. DVT prophylaxis: SCDs Charges/Coding Visit Charges Inpatient E&M: 09162 Subs Hosp L2
[2021-08-13] MEDS: Hydroxychloroquine 200 MG Tablet PO (17:58)
--- NOTE | 2021-08-13 18:05 | NURSING ---
Please refer to Food Operations Manager End of Case Report for information and details including but not limited to vitals, assessment, and hourly rounds regarding Pt. recovery and discharge following transfer from the ICU to [facility] due to staffing and beds needs associated with current Covid influx.
--- NOTE | 2021-08-13 19:47 | NURSING ---
Patient remains in recovery in label folder holding area, overflow beds due to pandemic. please refer to label folder end of case report for vitals, assessment, pain check, and other documentation.
[2021-08-13] MEDS: levETIRAcetam 750 MG Tablet 1500 MG PO (22:53)
[2021-08-13] MEDS: Atorvastatin Calcium 40 MG Tablet PO (22:53)
[2021-08-14 05:53] VITALS: O2SAT 98
[2021-08-14 05:53] LABS: Absolute Lymphocyte Count 1.48 X10^3/uL (0.83-4.51); Absolute Neutrophil Count 5.4 X10^3/uL (2.0-7.7); Basophil# 0.02 X10^3/uL; Basophil% 0.3 % (0-1); Eosinophil# 0.04 X10^3/uL; Eosinophils% 0.5 % (0-5); Hematocrit 34.7 % (37-47); Hemoglobin 11.4 g/dL (12.0-15.0); Lymphocyte # 1.48 X10^3/ul (0.83-4.51); Mean Corp Hgb Conc 32.9 g/dL (32-36); Mean Corpuscular Hgb 29.8 pg (27.0-32.0); Mean Corpuscular Volume 90.8 fL (81-99); Mean Platelet Vol. 10.9 fl (6.2-12.0); Monocyte% 10.3 % (0-10); NRBC Flagged by Analyzer 0 % (0-5); Neutrophil # 5.41 X10^3/uL (2.7-7.7); Neutrophil % 69.6 % (47-70); Platelet Count 228 K/mm3 (150-450); RBC Distribution Width CV 13.2 % (11.6-14.6); RBC Distribution Width SD 43.3 fl (35.1-43.9); Red Blood Count 3.82 M/mm3 (4.2-5.4); White Blood Count 7.8 K/mm3 (4.4-11.0)
[2021-08-14 06:08] LABS: Anion Gap 6 (5-15); BUN 20 mg/dL (7-18); BUN/Creat Ratio 23.6 RATIO (10-20); Calcium,Total 8.8 mg/dL (8.5-10.1); Chloride 113 mmol/L (98-107); Creatinine, Serum 0.85 mg/dL (0.55-1.02); EST Glomerular Filtration Rate 71 mL/min (>60); Est Glom Filt Rate - Afr Amer 86 mL/min (>60); Glucose 110 mg/dL (74-106); Potassium 3.7 mmol/L (3.5-5.1); Sodium Level 142 mmol/L (136-145)
[2021-08-14 07:46] VITALS: BP 123/71; PULSE 64; RESP 18; TEMP 36.5; O2SAT 96
[2021-08-14 07:48] VITALS: PULSE 65
[2021-08-14] MEDS: Hydroxychloroquine 200 MG Tablet PO (08:49)
[2021-08-14] MEDS: levETIRAcetam 1,000 MG Tablet 1000 MG PO (08:49)
[2021-08-14] MEDS: Aspirin E.C. 81 MG Tablet PO (08:49)
[2021-08-14] MEDS: TICAGRELOR 90 MG TABLET PO (08:49)
[2021-08-14] MEDS: Carvedilol 3.125 MG TABLET PO (08:49)
[2021-08-14] MEDS: Pantoprazole Sodium 20 MG Tablet PO (08:49)
--- NOTE | 2021-08-14 09:55 | PCM.DC.SUM ---
Providers Date of Admission: 08/12/21 Primary Care Physician: Dr. Raffi Zimmer DO Reason For Visit: STEMI Diagnosis Discharge Diagnosis (1) ST elevation (STEMI) myocardial infarction: Status: Acute Code(s): I21.3 - ST elevation (STEMI) myocardial infarction of unspecified site Qualifiers: Involved coronary artery: LAD coronary artery Qualified Code(s): I21.02 - ST elevation (STEMI) myocardial infarction involving left anterior descending coronary artery Medications at Discharge Home Medications levetiracetam 1,000 mg PO DAILY 08/12/21 Gemtesa 75 mg PO DAILY 08/13/21 hydroxychloroquine 200 mg PO BID 08/13/21 levetiracetam 1,500 mg PO QHS 08/13/21 pantoprazole 20 mg PO DAILY 08/13/21 atorvastatin 40 mg PO QHS #30 tab 08/14/21 carvedilol 3.125 mg PO BID #60 tab 08/14/21 lisinopril 2.5 mg PO DAILY #30 tab 08/14/21 ticagrelor [Brilinta] 90 mg PO BID #60 tab 08/14/21 Hospital Course Operations None Procedures 2-D Echocardiogram and Cardiac catheterization Summary of Care Provided Minutes Spent on Discharge: 45 Hospital Course: Patient is a 71 y/o female with a PMH as outlined who was admitted via the ED on 08/12/2021 with a complaint of chest pain which started on the evening before admission. On admission in the ED, she was found to have STEMI. STEMI alert was called and she was sent to the clinical lab assistant emergently, and was found to have a 95% occlusion of the LAD, so she had placement of a drug eluting stent. She was transferred to the ICU for closer monitoring afterwards. 2D echo done showed EF of 65%, with mildly enlarged left atrium and mild aortic stenosis, with RVSp of 33mmHg. She remained stable and was discharged home on aspirin, brilinta, carvedilol and high intensity statin. She is to follow up with her PCP and marketing proposal coordinator within 1-2 weeks, and was also referred for cardiac rehab. Patient seen and examined prior to discharge. She had no active complaints and felt well. REview of systems was otherwise negative. Labs and vitals reviewed. Home meds reviewed and reconciled. Physical Exam Const alert, oriented x3 and no apparent distress General Appearance: cooperative Exam Limitations: no limitations HEENT normocephalic, head/scalp atraumatic and moist oral mucous membranes Eyes PERRL, EOMs intact bilaterally and conjunctivae normal Neck no lymphadenopathy and supple Lymph Lymphatic: no lymphadenopathy noted Resp normal respiratory effort, no retractions, no use of accessory muscles and clear to auscultation bilaterally Cardio regular rate, regular rhythm, S1 normal heart sound, S2 normal heart sound and no murmurs GI normal to inspection, nondistended, normoactive bowel sounds, soft to palpation, non-tender and non-distended Extremity normal to inspection, full ROM and no clubbing, cyanosis or edema Skin no rashes or lesions noted General Skin Exam: turgor normal Neuro oriented x3, CN's II-XII intact bilaterally and moves all extremities Sensorium / Orientation: awake and alert Psych affect normal Weight / BMI Weight Weight: 218 lb 14.704 oz Body Mass Index (BMI) 40.0 ABG / Lab / Microbiology Data Result Diagrams: 08/14/21 05:30 08/14/21 05:30 Laboratory: Laboratory Results - last 24 hr 08/14/21 05:30: WBC 7.8, RBC 3.82 L, Hgb 11.4 L, Hct 34.7 L, MCV 90.8, MCH 29.8, MCHC 32.9, RDW Std Deviation 43.3, RDW Coeff of Leena 13.2, Plt Count 228, MPV 10.9, Immature Gran % (Auto) 0.300, Neut % (Auto) 69.6, Lymph % (Auto) 19.0, [place] % (Auto) 10.3 H, Eos % (Auto) 0.5, Baso % (Auto) 0.3, Absolute Neuts (auto) 5.4, Absolute Lymphs (auto) 1.48, Nucleated RBC % 0 08/14/21 05:30: Sodium 142, Potassium 3.7, Chloride 113 H, Carbon Dioxide 23.0, Anion Gap 6, BUN 20 H, Creatinine 0.85, Estim Creat Clear Calc 49.40, Est GFR (MDRD) Af Amer 86, Est GFR (MDRD) Non-Af 71, BUN/Creatinine Ratio 23.6 H, Glucose 110 H, Calcium 8.8 Radiography Diagnostic Testing: Radiology Impression Echocardiogram 08/12/21 20:00 Interpretation Summary The study was technically difficult. Based upon the 2D echocardiographic images obtained there appears to be grossly normal left ventricular size, wall motion, and systolic function. The estimated ejection fraction is 55 %. The left atrium is mildly enlarged. Mild (1+) mitral valve insufficiency. Mild tricuspid valve insufficiency. Mild aortic stenosis. Trivial pulmonic valve insufficiency. Trivial pericardial effusion. There are no echocardiographic indications of cardiac tamponade. Right ventricular systolic pressure estimated to be 33 mmHg. Diastolic function is indeterminate. Ordering Physician: Pako Engel Referring Physician: Pako Engel Performed By: Linda Robin, DREA, RVT D/C Instructions Discharge Diet: Low fat / Low cholesterol Discharge Activity: Return to Normal Activity Weight Bearing Status: Weight bearing as tolerated Call your doctor if you observe: Fever of 101 or Higher, Shortness of breath, Dizziness, Chest pain and Increased palpitations (irregular heartbeat) Meaningful Use Info Meaningful Use Diagnoses (Choose all that apply): AMI AMI/Post PCI/Angioplasty Aspirin given w/in 24hrs of arrival?: Yes ASA at discharge?: Yes Antiplatelet Therapy at Discharge:: Yes Statins at discharge?: Yes Tang/ARB at discharge?: Yes Beta Refugio at discharge?: Yes Done w/ Acute TX measure.: Yes Documented LVEF (%): 55 Discharge Plan Admission Admit Date/Time: 08/12/21 21:03 Attending Provider: Etta Gamboa Primary Care Provider: Raffi Zimmer Instructions Patient Instructions: Heart Attack Dc, Heart Attack Meds Discharge Orders/Prescriptions Prescriptions: New atorvastatin 40 mg Tablet 40 mg PO QHS Qty: 30 RF: 1 carvedilol 3.125 mg Tablet 3.125 mg PO BID Qty: 60 RF: 1 Brilinta 90 mg Tablet 90 mg PO BID Qty: 60 RF: 1 lisinopril 2.5 mg tablet 2.5 mg PO DAILY Qty: 30 RF: 1 Continued levetiracetam 1,000 mg tablet 1,000 mg PO DAILY RF: 0 pantoprazole 20 mg tablet,delayed release (DR/EC) 20 mg PO DAILY RF: 0 hydroxychloroquine 200 mg tablet 200 mg PO BID RF: 0 levetiracetam 1,000 mg tablet 1,500 mg PO QHS RF: 0 Gemtesa 75 mg Tablet 75 mg PO DAILY RF: 0 Discontinued metoprolol succinate 25 mg tablet extended release 24 hr 25 mg PO DAILY RF: 0 rosuvastatin 10 mg tablet 10 mg PO QHS RF: 0 Referrals / Follow Up: Adan Jaimes MD [STAFF PHYSICIAN] - Within 2 Weeks Raffi Zimmer DO [Primary Care Provider] - Within 2 Weeks Disposition Disposition (needs filled in before D/C Order can be placed): Home, Self Care Charges/Coding Visit Charges Inpatient E&M: 00214 Disch Hosp
--- NOTE | 2021-08-14 11:19 | PHA.DC.MC ---
Pharmacy Service has performed discharge medication reconciliation and counseling for this patient. Spoke with patient briefly as she was being wheeled out of the hospital. Let her know that this [facility] spoke to Dr. Gamboa as she is going to add aspirin. Dr. Gamboa said she will enter the order. Was not able to licensed professional counselor but did leave patient with medication education for the following medications: 1. ASPIRIN 81MG PO DAILYCM 2. ATORVASTATIN 40MG PO QHS 3. CARVEDILOL 3.125MG PO BID 4. LISINOPRIL 2.5MG PO DAILY 5. TICAGRELOR 90MG PO BID The patient's discharge medication list was reviewed for discrepancies and discrepancies were resolved. Home Medications levetiracetam 1,000 mg PO DAILY 08/12/21 Gemtesa 75 mg PO DAILY 08/13/21 hydroxychloroquine 200 mg PO BID 08/13/21 levetiracetam 1,500 mg PO QHS 08/13/21 pantoprazole 20 mg PO DAILY 08/13/21 atorvastatin 40 mg PO QHS #30 tab 08/14/21 carvedilol 3.125 mg PO BID #60 tab 08/14/21 lisinopril 2.5 mg PO DAILY #30 tab 08/14/21 ticagrelor [Brilinta] 90 mg PO BID #60 tab 08/14/21 The patient was counseled on the following discharge medications and changes in medications for homegoing were reviewed. The Reason for Use, instructions for use, and potential side effects were reviewed for all new medications. The patient's questions regarding all of their medications were answered. The patient was able to verbally demonstrate an understanding of their discharge medications.
== END 2021-08-14 11:18 | disposition home or self-care (01) | DRG 247 ==
LOC: ED 18:36 → ICU 19:10 → PCU 08-13 17:52
PROVIDERS: Admitting Provider Family Medicine; Emergency Provider Emergency Medicine; PCP Family Medicine; Referring Provider Specialist; Visit Provider Student in an Organized Health Care Education/Training Program
DX: I21.02 ST elevation (STEMI) myocardial infarction involving left anterior descending coronary artery (principal); I10 Essential (primary) hypertension; I25.10 Atherosclerotic heart disease of native coronary artery without angina pectoris; G40.909 Epilepsy, unspecified, not intractable, without status epilepticus; Z79.899 Other long term (current) drug therapy
CPT/HCPCS: 36415; 80048; 80053; 84484; 85025; 85027; 85610; 85730; 92941; 93005; 93306; 93458; 99285; C1874; J7030; J7040; Q9957; A4216; C1725; C1769; C1887; C1894; C9606; J1327; Q9967

== ENCOUNTER → 2021-09-27 | Outpatient (CLI) | payer OTHER, SELFPAY ==
--- NOTE | 2021-09-27 13:08 | CR.HP_ITS ---
CR - History & Physical - General Arrival date:: 09/27/21 Arrival time:: 15:20 Date of Referral:: 08/13/21 - Patient waited for insurance to change. Date of CR Evaluation:: 09/27/21 Referring Physician: DR. SHANNA CRAIG Primary Diagnosis: PCI w/coronary stenting - History of Present Cardiac Event Onset Date: Enter Onset Date of cardiac illnesses in Comment field below Acute Myocardial Infarction within 12 months:: Yes - ST elevated myocardial infarction (STEMI) PTCA or coronary stenting:: Yes - 08/12/2021 Type of Symptoms:: ANterior chest pressure, dyspnea, diaphoresis no vomiting. Focus on major points prior to chemistry laboratory technician. Interventions with present event:: Emergency heart cath procedure due to STEMI - Sleep Disorder Evaluation Hx of Sleep Apnea: No Do you snore loudly (louder than talking or can be heard through closed doors)?: No Do you often feel tired/ fatigued/ sleepy during daytime?: Yes Has anyone observed you stop breathing during sleep?: No History of Hypertension (for STOP score): Yes STOP Results: Positive - Medications Home Medications: Ambulatory Orders Medication Instructions Recorded levetiracetam 1,000 mg PO DAILY 08/12/21 Gemtesa 75 mg PO DAILY 08/13/21 hydroxychloroquine 200 mg PO BID 08/13/21 levetiracetam 1,500 mg PO QHS 08/13/21 pantoprazole 20 mg PO DAILY 08/13/21 aspirin 81 mg PO DAILY #30 tab 08/14/21 atorvastatin 40 mg tablet 40 mg PO QHS #90 tab 09/06/21 carvedilol 3.125 mg tablet 3.125 mg PO BID #180 tab 09/06/21 lisinopril 2.5 mg tablet 2.5 mg PO DAILY #90 tab 09/06/21 ticagrelor 90 mg tablet 90 mg PO BID #180 tab 09/06/21 - Allergies Allergies/Adverse Reactions: Allergies codeine Allergy (Verified 08/12/21 18:33) Other Advanced Directives - Advanced Directives Power of Benefits Sales Consultant: No Living Will: No Advance Directives Information Provided: Yes Advance Directives on File: No DNR Order?:: No - MOLST See MOLST form: No Past Medical History - Covid-19 Screening Fever: No Unexplained muscle aches: No Current respiratory symptoms: No Upper respiratory infections symptoms: No Gastro-intestinal symptoms: No Ebe-Qfud-Pqgokg symptoms: No Has tested positive for COVID-19 in last 30 days: No Date of testin08/23/20 - Tested positive for COVID-19 Had contact w/person w/symptoms or Covid-19 (+) last 14 days: No Has High Risk Exposures ID'd by Health dept/Inf Control team: No 65 years or older:: Yes Lives in Assisted Living facility:: No Has a chronic lung disease or moderate to severe asthma:: No Has a serious heart condition:: No Immunocompromised:: No Severely obese (Body Mass Index of 40 or higher):: Yes Diabetic:: No Has chronic kidney disease undergoing dialysis:: No Has liver disease:: No - Past Medical Illness Medical History: Past Medical History (Last Updated 09/27/21 @ 13:32 by Ray Marley, UR COORDINATOR, CUSTOMER ASSISTANT, BS) Atherosclerosis of coronary artery of z[place] heart without angina pectoris I25.10 Exertional shortness of breath R06.02 History of COVID-19 Onset Date: ~08/22/21 Z86.16 Hypertension I10 Seizure R56.9 - Past Surgical History Surgical History: Past Surgical History (Last Reviewed 09/10/21 @ 12:28 by Mami HENSON, PA) H/O knee surgery Z98.890 History of carpal tunnel surgery Z98.890 History of coronary artery stent placement Onset Date: 08/12/21 Z95.5 2.25 x 13 Osiro Bartelso MR ENA to LAD 08/12/21 History of kidney surgery Z98.890 Social History - Smoking History Smoking Status: Never smoker Hx Tobacco Use: No Hx Smoking Exposure: No - Alcohol Use Alcohol Usage: No - rarely; maybe on special occasions/holiday - Substance Abuse Hx Substance Use: No - Occupation Occupation (List type of work in comments):: Unemployed - Hobbies, Recreation, Social Activities Hobbies: Reading, Watch TV Recreational Activities: I am able to engage in a few activities Social Environment - Status Marital Status: - Current Living Arrangements Living Environment:: Spouse - Children How many children do you have?: 2 - Safety Do you feel safe in your surroundings?: Yes - Assistance Do you need any assistance at home?: none Review of Systems - Review of Systems Hints: Right click = Denies ([place]). Left click = Reports ([place]) Review of Present Symptoms: Reports: Shortness of Breath with Exertion, Dizziness/Lightheadedness, Fatigue, Appetite - Normal, Sleep - Normal. Denies: Shortness of Breath at Rest, Operative Discomfort, Heart Arrhythmia/Irregularities, Appetite - Special Diet - Pain Is Patient Pain Free?: Yes Pain Location: none Pain Level: 0/10 Risk Factor Assessment - Chief Complaint Chief Complaint: Patient is a [address] Craig who presents to cardiac rehab today following a recent STEMI and emergency heart cath for coroanry stent placement. - Vital Signs Temperature: 97.6 F Respiratory Rate: 16 Pulse Ox: 96 Blood Pressure: 108/69 - Pulse Pulse Rate: 65 - Hypertension On medication(s)?: yes Blood Pressure Sitting - Left Arm: 108/69 - Stress Stress: Recent - Obesity Height: 5 ft 2 in Weight:: 217 lb Weight in Pounds: 217.0 lbs Weight Source: Stated by Patient Body Mass Index (BMI): 39.6 Nutritional Referral for Obesity: Yes - WHY WEIGHT-structured weight loss program - Physical Inactivity Physical Inactivity: Reg Exercise 30 min/day - physically active >1 hour daily - Risk Stratification Risk Guidelines: Lowest Risk: Risk Factor for Smoking, Risk Factor for Diabetes, Risk Factor for Hypertension, Risk Factor for Depression, Moderate Risk: Risk Factor for Sedentary Lifestyle, Highest Risk: Risk Factor for Obesity Motivation - Motivation to Participate On a scale of 1 to 10, how prepared are you to commit to attending program?: 9 What do you see as barriers to successfully being able to complete the program?: husbands work schedule and CR schedule times/transportation What do you see as the benefits of succesfully completing the program? In other words, what do you hope to get out of participating in the program?: getting stronger, learning more about heart disease Are there issues you are dealing with that will interfere with completing the program?: no Do you have a spouse or signficant other, family or friends who will help support you to complete the program?: yes, definately
[2021-09-27 13:33] VITALS: BP 108/69; PULSE 65; RESP 16; TEMP 36.4; O2SAT 96; BMI 39.6
--- NOTE | 2021-09-27 13:43 | PCM.CR.ITP ---
Diagnosis - General Information Admitting Diagnosis: STEMI, PCI w/coronary stenting Secondary Diagnosis: HTN, OBESITY, ISCHEMIC CARDIOMYOPATHY Personal Learning Style:: Audio/Visual, Written Barriers to Learning: No Barriers Stage of change r/t lifestyle modifications:: Action Gave educational material for:: Treating Heart Disease, Emotions & Heart Disease, Stress Management & Relaxation, Sleep Disorders & Heart Disease, How The Heart Works, What it means to have Heart Disease, How Coronary Artery Disease is Diagnosed, Heart Procedures, What Heart Medications Do, Risk Factors & Modifications, Living an Active Life, Nutrition - Education/Goals Individual Counseling: Initial Assessment: High Blood Pressure, Overweight/Obesity, Sedentary Lifestyle - Recent due to knee surgery, COVID-19 infection and hten heart attack. Cardiac Rehabilitation Goals: 1. Maintain the individual as the primary focus of care. 2. To improve the patient's quality of life. 3. Identification of cardiac risk factors and provide cardiac risk factor management. 4. Enhance the psychosocial status of the patient. 5. Reconditioning enough to allow the patient to resume customary activities. 6. Control symptoms of cardiac disease Personal Goals: Initial Assessment: Improve management of stress and emotions, Improve energy level, Participate in home exercise program, Get back to work, or to resume activities faster, Improve knowledge of cardiac disease, Improve muscle strength and endurance, Improve diet and eating habits (eat healthier), Control risk factors (learn risk factor modification) Scale for measuring improvement of personal goals: Enter appropriate number in Comments. 2 = Unchanged. 3 = Slightly Better. 4 = Moderate Improvement. 5 = Met my Goal - Diagnosis & Disease Process Outcomes/Goals: Pt IDs own risk factors & lifestyle modifications by Session 10, Verbalizes symptoms of angina & response by session 3., Pt independently manages Plan/Interventions: Assist Pt to ID & engage in lifestyle modification to reduce CVD risk, Instruct on individual risk factors, Review symptoms of angina & emergency actions, Review secondary diagnosis & identify educational needs. - Safety Referral to Physical Therapy: No Referral to [facility] Case Management: No Fall Risk Assessed:: Yes Assistive Devices:: None Exercise - Initial Assessment - Visit Date of Eval: 09/27/21 - Patietn to start CR on 10/02/2021 @ 3:45pm Session #:: 0 - pre-cardiac rehab evaluation Mets: Pre-: >5 METS for 30 minutes by discharge - Physician Prescribed Exercise Modalities: Treadmill, Biodyne - Biodyne has been replaced by a Lateral Glacing Machine Tender, NuStep, SciFit Frequency: 3x/week for 12 weeks [36 sessions] Intensity: 60-80% of age predicted maximum heart rate reserve Current METSs:: 2.0 Resting Blood Pressure: 108/69 EKG Type: Sinus Rhythm with premature atrial complexes Current Physical Activity or Exercising minutes: >1 hour pre patient - Outcomes & Goals Goals:: Verbalizes understanding of THR, RPE & goal METS by session 6, Documents in home exercise log/reports 30 min aerobic 5 day/wk by DC - Intervention & Plan Exercise Program Goals: Instruct on personal THR & RPE, Instruct on MET level & personal MET goal, Show patient to take own pulse /validate performance until accurate, Instruct on home exercise - Physical Activity Home Exercise Physical Activity - Home Exercise: Safe Exercise, Warm-up, Self-monitoring, Cool-Down, Home Exercise > 30 min Daily, Sitting Time <3 hours/daily - Outcomes & Goals Outcomes/Goals: Demonstrates correct Warm-up/exercise Cool-Down (S3) if = 2.5 METs, Verbalizes symptoms of exercise intolerance by Session 3 (S3), Demonstrate safe equipment use (S3) & follows exercise prescrition (6) - Intervention & Plan Plan/Intervention: Instruct warm-up & cool-down if exercising at > 2 METs, Instruct on symptoms of exercise intolerance & actions to take, Instruct & monitor on saf, Assess intial functional capacity & safety risk Nutrition - Initial Assessment - Program Goals Nutrition Program Goals: LDL <100 optimal. 100 - 129 Near optimal. 130 - 159 Borderline High. 160 - 189 High. Total Cholesterol <200 desirable. 200 - 239 Borderline High. >/= 240 High. HDL < 40 Low >/=60 High. Triglycerides <150 desirable. <199 optimal. VlDL 5 - 40. HgbA1C <7%. BMI <25 Patient has diagnosis of Hyperlipidemia (ICD E78)?: No - Cholesterol/Lipids Determine presence & major risk factors that modify LDL goal: Hypertension or hypertensive medication, Family history of premature CHD in Male < 55 years: female <65 yearsFa, Age men > 45 years; women >/= 55 years Outcomes/Goals: Pt IDs own risk factors & lifestyle modifications by Session 10, Verbalizes symptoms of angina & response by session 3., Pt independently manages Intervention/Plan: Advocate for lipid panel cholesterol medication if applicable, Instruct on personal lipid levels & lipid goals/NCEP guidelines, Instruct on cholesterol Referral to dietitian:: Yes - Medical Nutrition Therapy - Diabetes (Other Core Measures) Diabetes Type: Not Applicable - Weight Mgt (Other Care) Not Applicable: No Height: 5 ft 2 in Weight:: 217 lb BMI: 39.6 Diagnosis Overweight/Obesity BMI> 30% ICD-10 E66: Yes Diagnosis High BMI/Morbid Obesity BMI> 35% ICD-10 Z68: Yes Outcomes/Goals: Pt sets, maintains & shows weight loss goal & trend during rehab Intervention/Plan: Instruct on ideal BMI & set weight loss goal w/patient, Assist pt to ID & incorporate diet changes for weight loss by S9, Refer to Structured Weight Loss program as appropriate, Encourage goal of using 250-300dcal per session for weight loss - Healthy Eating Habits Will attend diet classes:: Yes Outcomes/Goals:: Consume diet rich in vegs,fruits,whole grain/high fiber,fish,lean meat, Limit sat/trans fats,cholesterol & added salts & sugars Intervention/Plan:: Assess current eating habits - Education Gave educational materials for:: Healthy eating Nutrition - 30-Day Assessment Nutrition - 60-Day Assessment Nutrition - 90-Day Assessment Nutrition - Final Assessment Medical - Initial Assessment - Visit Date of Eval: 09/27/21 Session #:: 0 - pre-cardiac rehab evaluation - Medication Compliance Preventative Medication(s):: Aspirin, Ticagrelor/P2Y12 inhibitor, Statin/lipid, Beta riley H/O mental health issues: depression, anxiety, or addiction?: No Doesn?t believe in the benefits of treatment?: No Believes medications are unnecessary or harmful?: No Has a concern about medication side effects?: No Expresses concern over the cost of medications?: No Outcomes/Goals: Verbalizes medications,desired effect & common side effects @ DC, Pt self-reports following medication regimen, Keeps card in wallet w/medications listed by DC Interventions/plans: Instruct on medication effects & side effects, Review medication list w/patient every two weeks, Instruct importance of taking meds as ordered & assist problem solving - Tobacco Use Tobacco Use: Non-smoker - Hypertension Hypertension Diagnosis:: Hypertension ICD-10 I10 Resting Blood Pressure:: 108/69 [employer] Hypertension Guidelines: [place] [employer] Hypertension Guidelines. Normal BP Less than 120/80. Elevated BP 120/80. Hypertension Stage 1: BP 130-139/80-89. Hypertesnion Stage 2: BP 140 or higher/90 or higher. Hypertension Crisis: BP higher than 180/120 Outcomes/Goals: Able to verbalize/achieve optimal blood pressure <130/80, Incorporates diet changes & exercise for blood pressure control by DC Interventions/plan: Instruct on optimal blood pressure, hypertension & medications, Instruct on effects of sodium, alcohol, stress, exercise &hypertension - Tobacco Cessation Referral Smoking Cessation Referral:: No Individual Education/Counseling:: No Education Schedule Given:: Yes Medical- 30-Day Assessment Medical- 60-Day Assessment Medical- 90-Day Assessment Medical - Final Assessment Psychosocial - Initial Assess - VIsit Date of Eval: 09/27/21 Session #:: 0 - Pre-cardiac rehab evaluation Not Applicable: Yes History of previous Mental disease:: No History of Emotional Disorders: Anxious - Recent due to recent COVID and then the [place] and stents. , Depression - Psychosocial Test Tool Used:: ManageSocial QOL Cardiac, PHQ-9 Questionnaire phq-9 Severity: Severity. 1-4 Minimal Depression. 5-9 Mild Depression. 10-14 Moderate Depression. 15-19 Moderately Sever Depression. 20-27 Severe Depression. Rule: - Referral to Behavioral Health PS - Interventions: Yes Attend Stress Management Classes, No Referral to Behavioral Health if PHQ-9 score >9:, No Referral to [facility], No Referral to Physician if PHQ-9 if score is 5-9: - Outcomes/Goals: See list Psychosocial Outcomes/Goals:: ID's personal stressors & 2 strategies to manage stress by discharge - Intervention/Plan: See List Interventions/Plan:: Assess stressors,coping strategies & signs of derpression on admission, Instruct/assist pt to develop coping & personal stress Mgt strategies, Instruct patient to recognize signs & symptoms of depression, Instruct patient to recog Psychosocial - 30-Day Assess Psychosocial - 60-Day Assess Psychosocial - 90-Day Assess Psychosocial - Final Assessmen Patient Health Questionnaire Initial Assessment 1. Little interest or pleasure in doing things: Not at all 2. Feeling down, depressed, or hopeless: Not at all 3. Trouble falling or staying asleep, or sleeping too much: Nearly every day 4. Feeling tired or having little energy: Several days 5. Poor appetite or overeating: Several days 6. Feeling bad about yourself -- or that you are a failure or have let yourself or your family down: Not at all 7. Trouble concentrating on things, such as reading the newspaper or watching television: Not at all 8. Moving or speaking so slowly that other people could have noticed. Or the opposite - being so fidgety or restless that you have been moving around a lot more than usual: Not at all 9. Thoughts that you would be better off , or of hurting yourself in some way: Not at all How difficult have these problems made it for you to do your work, take care of things at home, or get along with other people?: Somewhat difficult Total Score: 5 SILVIA-Q SV Test - Statements CAD is a disease of the arteries in the heart: False Examples of risk factors for heart disease: True Angina is chest pain or discomfort: True The benefits of resistance training include: I Don't Know Eating more meat and dairy products: I Don't Know Anti-platelet medications such as aspirin are important: I Don't Know The only effective way to manage stress: False An exercise warm-up slowly increases heart rate: True Prepared, processed foods usually have high sodium: True Depression is common after a heart attack: True The statin medications lower cholesterol: I Don't Know To control blood pressure, lower the amount of sodium: True If someone gets chest discomfort during walking: False Transfats are partially hydrogenated vegetable oils: True Sleep apnea that is not treated increases the risk: I Don't Know To control cholesterol, one should become a vegetarian: False Someone knows if he/she is exercising at the right level: I Don't Know Diabetes cannot be prevented with exercise & health eating: False Stress is a large risk for heart attack: True A diet that can help lower blood pressure is rich in: True - Total Score Total Correct Responses: 14 Self-Efficacy Initial Assessment We would like to know how confident you are in doing certain activities. Please select your confidence level for:: Select your confidence level for the following using the scale 1-10 where 1 is not at all confident and 10 is totally confident. Your score is the average of all 6 responses. Fatigue: How confident are you that you can keep the fatigue caused by your disease from interfering with the things you want to do? Select Number: 9 Physical Discomfort or Pain: How confident are you that you can keep the physical discomfort or pain of your disease from interfering with the things you want to do? Select Number: 8 Emotional Distress: How confident are you that you can keep the emotional distress caused by your disease from interfering with the things you want to do? Select Number: 8 Other Symptoms or Health Problems: How confident are you that you can keep other symptoms or health problems from interfering with the things you want to do? Select Number: 9 Different Tasks and Activities: How confident are you that you can do the different tasks and activities needed to manage your health condition so as to reduce your need to see a doctor? Select Number: 8 Medication: How confident are you that you can do things other than just taking medication to reduce how much your illness affects your everyday life? Select Number: 9 Total Score:: 8 Nutrition Survey - Nutrition Survey Initial Have you lost >10 lbs over the past 2 months without trying?: No Are you following a special diet at home for diabetes, low fat, or low salt?: No Are you interested in meeting with a dietitian for help understanding your diet?: Yes Do you eat less than 3 meals a day?: No Do you eat fatty meats (soni, sausage, ribs, etc), fried foods, desserts, large amounts of salad dressings, margarine, butter, or cheese most days?: Yes Do you have food allergies? [Enter types in comment field]: No Do you eat in restaurants more than 3 times a week?: No Do you season food with salt, seasoning salt, or garlic salt?: No Do you used canned, boxed, frozen meals, or soups, seasoning packets?: Yes Total Score:: 3
[2021-09-27 15:47] VITALS: BP 108/69; BMI 39.6
== END | disposition home or self-care (01) ==
PROVIDERS: PCP Family Medicine; Referring Provider Internal Medicine Cardiovascular Disease; Visit Provider Internal Medicine Cardiovascular Disease
DX: Z95.5 Presence of coronary angioplasty implant and graft (principal)

== ENCOUNTER 2021-10-28 15:45 | Outpatient (RCR) | payer MEDICARE, OTHER, SELFPAY ==
--- NOTE | 2021-10-28 12:28 | PCM.CR.ITP ---
Diagnosis Exercise - 30-day Assessment - Visit Date of Eval: 10/28/21 Session #:: 10 - Physician Prescribed Exercise Modalities: Treadmill, Airdyne, NuStep Frequency: 3x/week for 12 weeks [36 sessions] Intensity: 60-80% of age predicted maximum heart rate reserve Current METSs:: 2.5 Target Heart Rate:: 98-128 Current RPE:: 12 Maximum Excercise HR:: 98 Resting Blood Pressure: 110/78 Maximum Exercise Blood Pressure: 132/78 EKG Type: NSR to sinus tachycardia with frequent PACs/sinus arrhythmia - Outcomes & Goals Goals:: Verbalizes understanding of THR, RPE & goal METS by session 6, Documents in home exercise log/reports 30 min aerobic 5 day/wk by DC, Demonstrates accurate pulse taking by DC - Intervention & Plan Exercise Program Goals: Instruct on personal THR & RPE, Instruct on MET level & personal MET goal, Show patient to take own pulse /validate performance until accurate, Instruct on home exercise - 30-day Reassessments 30 day Reassessments:: Progressing - Physical Activity Home Exercise Physical Activity - Home Exercise: Safe Exercise, Warm-up, Self-monitoring, Cool-Down, Home Exercise > 30 min Daily, Sitting Time <3 hours/daily - Outcomes & Goals Outcomes/Goals: Demonstrates correct Warm-up/exercise Cool-Down (S3) if = 2.5 METs, Verbalizes symptoms of exercise intolerance by Session 3 (S3), Demonstrate safe equipment use (S3) & follows exercise prescrition (6) - Intervention & Plan Plan/Intervention: Instruct warm-up & cool-down if exercising at > 2 METs, Instruct on symptoms of exercise intolerance & actions to take, Instruct & monitor on saf, Assess intial functional capacity & safety risk - 30-day Reassessments 30 day Reassessments:: Progressing Nutrition - Initial Assessment Nutrition - 30-Day Assessment - Program Goals Nutrition Program Goals: LDL <100 optimal. 100 - 129 Near optimal. 130 - 159 Borderline High. 160 - 189 High. Total Cholesterol <200 desirable. 200 - 239 Borderline High. >/= 240 High. HDL < 40 Low >/=60 High. Triglycerides <150 desirable. <199 optimal. VlDL 5 - 40. HgbA1C <7%. BMI <25 Patient has diagnosis of Hyperlipidemia (ICD E78)?: Yes - Visit Date of Assessment:: 10/28/21 Session #:: 10 - Cholesterol/Lipids Triglycerides (mg/dL): 0 - not available Determine presence & major risk factors that modify LDL goal: Hypertension or hypertensive medication, Family history of premature CHD in Male < 55 years: female <65 yearsFa, Age men > 45 years; women >/= 55 years Outcomes/Goals: Pt IDs own risk factors & lifestyle modifications by Session 10, Verbalizes symptoms of angina & response by session 3., Pt independently manages Intervention/Plan: Instruct on personal lipid levels & lipid goals/NCEP guidelines, Instruct on cholesterol Referral to dietitian:: Yes - Medical Nutrition Therapy 30-day Reassessments:: Progressing - Diabetes (Other Core Measures) Diabetes Type: Not Applicable - Weight Mgt (Other Care) Height: 5 ft 2 in Weight:: 217 lb BMI: 39.6 Diagnosis Overweight/Obesity BMI> 30% ICD-10 E66: Yes Diagnosis High BMI/Morbid Obesity BMI> 35% ICD-10 Z68: Yes Outcomes/Goals: Pt sets, maintains & shows weight loss goal & trend during rehab Intervention/Plan: Instruct on ideal BMI & set weight loss goal w/patient, Assist pt to ID & incorporate diet changes for weight loss by S9, Refer to Structured Weight Loss program as appropriate, Encourage goal of using 250-300dcal per session for weight loss 30 day Reassessments:: Not Met - no weight loss in 30-days - Healthy Eating Habits Will attend diet classes:: Yes Outcomes/Goals:: Consume diet rich in vegs,fruits,whole grain/high fiber,fish,lean meat, Limit sat/trans fats,cholesterol & added salts & sugars Intervention/Plan:: Assess current eating habits 30-day Reassessments:: Progressing - Education Gave educational materials for:: Healthy eating Nutrition - 60-Day Assessment Nutrition - 90-Day Assessment Nutrition - Final Assessment Medical - Initial Assessment Medical- 30-Day Assessment - Visit Date of Eval: 10/28/21 Session #:: 10 - Medication Compliance Preventative Medication(s):: Aspirin, Ticagrelor/P2Y12 inhibitor, Statin/lipid, Beta riley H/O mental health issues: depression, anxiety, or addiction?: No Doesn?t believe in the benefits of treatment?: No Believes medications are unnecessary or harmful?: No Has a concern about medication side effects?: No Expresses concern over the cost of medications?: No Outcomes/Goals: Verbalizes medications,desired effect & common side effects @ DC, Pt self-reports following medication regimen, Keeps card in wallet w/medications listed by DC Interventions/plans: Instruct on medication effects & side effects, Review medication list w/patient every two weeks, Instruct importance of taking meds as ordered & assist problem solving 30-day Reassessments:: Progressing - Tobacco Use Tobacco Use: Non-smoker - Hypertension Hypertension Diagnosis:: Hypertension ICD-10 I10 Resting Blood Pressure:: 110/78 [employer] Hypertension Guidelines: [employer] Hypertension Guidelines. Normal BP Less than 120/80. Elevated BP 120/80. Hypertension Stage 1: BP 130-139/80-89. Hypertesnion Stage 2: BP 140 or higher/90 or higher. Hypertension Crisis: BP higher than 180/120 Peak Exercise Blood Pressure:: 110/78 Outcomes/Goals: Able to verbalize/achieve optimal blood pressure <130/80, Incorporates diet changes & exercise for blood pressure control by DC Interventions/plan: Instruct on optimal blood pressure, hypertension & medications, Instruct on effects of sodium, alcohol, stress, exercise &hypertension 30 day Reassessments:: Progressing - Tobacco Cessation Referral Smoking Cessation Referral:: No Individual Education/Counseling:: No Education Schedule Given:: Yes Medical- 60-Day Assessment Medical- 90-Day Assessment Medical - Final Assessment Psychosocial - Initial Assess Psychosocial - 30-Day Assess - VIsit Date of Eval: 10/28/21 Session #:: 10 Not Applicable: Yes - Psychosocial Test Tool Used:: PHQ-9 Questionnaire phq-9 Severity: Severity. 1-4 Minimal Depression. 5-9 Mild Depression. 10-14 Moderate Depression. 15-19 Moderately Sever Depression. 20-27 Severe Depression. Rule: - Referral to Behavioral Health PS - Interventions: Yes Attend Stress Management Classes, No Referral to Behavioral Health if PHQ-9 score >9:, No Referral to [facility], No Referral to Physician if PHQ-9 if score is 5-9: - Outcomes/Goals: See list Psychosocial Outcomes/Goals:: ID's personal stressors & 2 strategies to manage stress by discharge - Intervention/Plan: See List Interventions/Plan:: Assess stressors,coping strategies & signs of derpression on admission, Instruct/assist pt to develop coping & personal stress Mgt strategies, Instruct patient to recognize signs & symptoms of depression, Instruct patient to recog - 30-day Reassessments: 30 day Reassessments:: Progressing Psychosocial - 60-Day Assess Psychosocial - 90-Day Assess Psychosocial - Final Assessmen Patient Health Questionnaire 30-Day Re-eval Assessment 1. Little interest or pleasure in doing things: Not at all 2. Feeling down, depressed, or hopeless: Not at all 3. Trouble falling or staying asleep, or sleeping too much: Several days 4. Feeling tired or having little energy: Several days 5. Poor appetite or overeating: Several days 6. Feeling bad about yourself -- or that you are a failure or have let yourself or your family down: Not at all 7. Trouble concentrating on things, such as reading the newspaper or watching television: Not at all 8. Moving or speaking so slowly that other people could have noticed. Or the opposite - being so fidgety or restless that you have been moving around a lot more than usual: Not at all How difficult have these problems made it for you to do your work, take care of things at home, or get along with other people?: Not difficult at all Total Score: 3 Self-Efficacy 30-Day Re-eval Assessment We would like to know how confident you are in doing certain activities. Please select your confidence level for:: Select your confidence level for the following using the scale 1-10 where 1 is not at all confident and 10 is totally confident. Your score is the average of all 6 responses. Fatigue: How confident are you that you can keep the fatigue caused by your disease from interfering with the things you want to do? Select Number: 9 Physical Discomfort or Pain: How confident are you that you can keep the physical discomfort or pain of your disease from interfering with the things you want to do? Select Number: 8 Emotional Distress: How confident are you that you can keep the emotional distress caused by your disease from interfering with the things you want to do? Select Number: 8 Other Symptoms or Health Problems: How confident are you that you can keep other symptoms or health problems from interfering with the things you want to do? Select Number: 9 Different Tasks and Activities: How confident are you that you can do the different tasks and activities needed to manage your health condition so as to reduce your need to see a doctor? Select Number: 8 Medication: How confident are you that you can do things other than just taking medication to reduce how much your illness affects your everyday life? Select Number: 9 Total Score:: 8 Nutrition Survey
[2021-10-28 12:35] VITALS: BP 110/78; BMI 39.6
== END 2021-10-28 23:59 ==
LOC: CR 15:45
PROVIDERS: PCP Family Medicine; Referring Provider Internal Medicine Cardiovascular Disease; Visit Provider Internal Medicine Cardiovascular Disease
DX: I25.10 Atherosclerotic heart disease of native coronary artery without angina pectoris (principal); I21.02 ST elevation (STEMI) myocardial infarction involving left anterior descending coronary artery; Z95.5 Presence of coronary angioplasty implant and graft
CPT/HCPCS: 93798

== ENCOUNTER 2021-11-03 17:04 | Emergency (ER) | payer MEDICARE, OTHER, SELFPAY ==
[2021-11-03 17:05] VITALS: BP 151/82; PULSE 62; RESP 18; TEMP 36.6; O2SAT 98; BMI 39.4
[2021-11-03 17:33] VITALS: O2SAT 100
[2021-11-03 17:38] VITALS: BP 155/87; PULSE 62; RESP 18; O2SAT 100
--- NOTE | 2021-11-03 18:09 | EKG12_ITS ---
Test Reason : CHEST PAIN Blood Pressure : / mmHG Vent. Rate : 061 BPM Atrial Rate : 061 BPM P-R Int : 178 ms QRS Dur : 100 ms QT Int : 446 ms P-R-T Axes : 045 -13 062 degrees QTc Int : 448 ms Normal sinus rhythm Normal ECG Confirmed by KIARA NOGUERA, SHANNA ([id number]), art editor TOM SORENSON ([id number]) on 11/05/2021 9:21:06 AM Referred By: ADRIANA/HAM Confirmed By:SHANNA CRAIG MD
--- NOTE | 2021-11-03 18:15 | RAD_ITS ---
STUDY: X-RAY CHEST REASON FOR EXAM: Female, 71 years old. chest pain TECHNIQUE: 1 view COMPARISON: None. FINDINGS: Cardiomediastinal silhouette is unremarkable. Costophrenic angles are sharp. Lungs are clear. The trachea is midline. There is no pneumothorax. Multilevel thoracic spondylosis is noted. RAD/Chest 1 View (Portable) IMPRESSION: No acute cardiopulmonary process. Electronically Signed: Juan Medrano MD at 19:03 EST ,
[2021-11-03] MEDS: Aspirin 81 MG TAB.CHEW 324 MG PO (18:17)
[2021-11-03 18:18] VITALS: BP 154/89; PULSE 64; RESP 16; O2SAT 98
[2021-11-03 18:27] LABS: Absolute Lymphocyte Count 1.43 X10^3/uL (0.83-4.51); Absolute Neutrophil Count 3.5 X10^3/uL (2.0-7.7); Basophil# 0.04 X10^3/uL; Basophil% 0.7 % (0-1); Eosinophil# 0.14 X10^3/uL; Eosinophils% 2.5 % (0-5); Hematocrit 40.7 % (37-47); Lymphocyte # 1.43 X10^3/ul (0.83-4.51); Lymphocyte % 25.3 % (19-41); Mean Corp Hgb Conc 31.9 g/dL (32-36); Mean Corpuscular Hgb 29.8 pg (27.0-32.0); Mean Corpuscular Volume 93.3 fL (81-99); Mean Platelet Vol. 11.5 fl (6.2-12.0); Monocyte# 0.52 X10^3/uL; Monocyte% 9.2 % (0-10); NRBC Flagged by Analyzer 0 % (0-5); Neutrophil % 61.9 % (47-70); Platelet Count 184 K/mm3 (150-450); RBC Distribution Width CV 13.2 % (11.6-14.6); RBC Distribution Width SD 44.7 fl (35.1-43.9); Red Blood Count 4.36 M/mm3 (4.2-5.4); White Blood Count 5.7 K/mm3 (4.4-11.0)
[2021-11-03 18:42] LABS: Anion Gap 2 (5-15); BUN 25 mg/dL (7-18); Calcium,Total 9.6 mg/dL (8.5-10.1); Chloride 111 mmol/L (98-107); Creatinine, Serum 0.96 mg/dL (0.55-1.02); EST Glomerular Filtration Rate 61 mL/min (>60); Est Glom Filt Rate - Afr Amer 74 mL/min (>60); Estimated Creatinine Clearance 43.74 ml/min; Glucose 102 mg/dL (74-106); Sodium Level 141 mmol/L (136-145); Troponin-I HS 29 pg/mL (3.0-54.0)
[2021-11-03 19:00] VITALS: BP 152/88; PULSE 60; RESP 16; O2SAT 99
[2021-11-03 19:44] LABS: Troponin-I HS 29 pg/mL (3.0-54.0)
--- NOTE | 2021-11-03 20:33 | ED.VIS.CHEST ---
HPI History of Present Illness Chief Complaint: Chest Pain Informant: patient Onset/Context/Timing Onset: Today Activity at onset: gradual Timing: Continuous Quality: Positive for Pressure Location: Left Chest Worsened By: Nothing Relieved By: Nothing Associated Symptoms: Positive for Cough; Negative for Nausea, Vomiting, Diaphoresis, Dyspnea, Fever, Lightheadedness, Acid Reflux and Palpitations Narrative Narrative: Patient presents with chest pain that began today. Patient states it is gradually gotten worse. Patient states it has been constant throughout the day today. Patient describes it as a pressure. Patient states the pain is over the left chest. Patient states nothing makes it worse and nothing makes it better. Patient admits to a cough. Patient denies any nausea or vomiting. Patient denies any shortness of breath or diaphoresis. Patient denies any palpitations. CVD Risk Factors: Positive for Family History 1' </=55; Negative for Hypertension, Diabetes, Hypercholesterolemia and Smoking PE Risk Factors: Positive for Cancer; Negative for Recent Travel/Surgery, Recent Immobilization, Prior DVT or PE and OCP + Smoking + >/=35 PFSH PFS Medical History Atherosclerosis of coronary artery of [place] heart without angina pectoris Exertional shortness of breath History of COVID-19 (~08/22/21) Hypertension Seizure Home Medications levetiracetam 1,000 mg PO DAILY 08/12/21 [History Last Taken Unknown] Gemtesa 75 mg PO DAILY 08/13/21 [History Last Taken Unknown] hydroxychloroquine 200 mg PO BID 08/13/21 [History Last Taken Unknown] levetiracetam 1,500 mg PO QHS 08/13/21 [History Last Taken Unknown] pantoprazole 20 mg PO DAILY 08/13/21 [History Last Taken Unknown] aspirin 81 mg PO DAILY #30 tab 08/14/21 [Rx Last Taken Unknown] atorvastatin 40 mg tablet 40 mg PO QHS #90 tab 09/06/21 [Rx Last Taken Unknown] carvedilol 3.125 mg tablet 3.125 mg PO BID #180 tab 09/06/21 [Rx Last Taken Unknown] lisinopril 2.5 mg tablet 2.5 mg PO DAILY #90 tab 09/06/21 [Rx Last Taken Unknown] ticagrelor 90 mg tablet 90 mg PO BID #180 tab 09/06/21 [Rx Last Taken Unknown] Allergy/AdvReac Type Severity Reaction Status Date / Time codeine Allergy Other Verified 11/03/21 17:07 Surgical History H/O knee surgery History of carpal tunnel surgery History of coronary artery stent placement (08/12/21) History of kidney surgery Social History adopted: No household members: spouse housing: house number of children: 2 current occupational status: retired current occupational exposures/hazards: No pets and animals: No leisure activities: other history of recent travel: No sexually active: Yes Smoking Status: Never smoker ROS ROS ED Constitutional Constitutional ED: Denies chills or fever(s) Eyes Eyes: Denies blurry vision or change in vision ENT ENT ED: Denies rhinorrhea or sore throat Cardiovascular Cardiovascular: Reports chest pain; Denies palpitations Respiratory/Chest Respiratory/Chest: Reports cough; Denies dyspnea Gastrointestinal Gastrointestinal: Denies abdominal pain, nausea or vomiting Genitourinary Genitourinary ED: Denies dysuria or hematuria Musculoskeletal Musculoskeletal: Reports neck pain; Denies back pain Integumentary Denies abscess or rash Neurologic Neurologic: Reports headache(s); Denies weakness Allergic/Immunologic Allergic/Immunologic ED: Denies mouth swelling or urticaria EXAM Physical Exam Const Vital Signs: 11/03/21 17:05 11/03/21 17:33 11/03/21 17:38 Temperature 97.9 F Temperature Source Temporal Pulse Rate 62 62 Respiratory Rate 18 18 Blood Pressure 151/82 H 155/87 H Blood Pressure Mean 105 109 Pulse Ox 98 100 100 Oxygen Delivery Method Room Air Room Air 11/03/21 18:12 11/03/21 18:18 11/03/21 19:00 Temperature Temperature Source Pulse Rate 64 60 Respiratory Rate 16 16 Blood Pressure 154/89 H 152/88 H Blood Pressure Mean 110 109 Pulse Ox 98 99 Oxygen Delivery Method Room Air Room Air 11/03/21 20:43 Temperature Temperature Source Pulse Rate 56 L Respiratory Rate 16 Blood Pressure 144/78 H Blood Pressure Mean Pulse Ox 97 Oxygen Delivery Method Positive well nourished, well developed and obese General Appearance ED: well developed and NAD Nutritional Appearance: obese HEENT normocephalic and atraumatic Eyes PERRL and EOMs intact bilaterally Neck supple and no JVD Chest Wall Chest Narrative: There is mild tenderness to palpation over the left chest. Patient states this is different than the pain she was having. Resp normal respiratory effort and clear to auscultation bilaterally Effort and Inspection: Negative for respiratory distress Cardio regular rate, regular rhythm and no murmurs GI normal to inspection, nondistended, normoactive bowel sounds, soft to palpation, non-tender and non-distended Extremity normal to inspection General Extremety ED: Negative for edema or tenderness General Extremity: Negative for edema Neuro oriented x3, CN's II-XII intact bilaterally and no sensory deficits noted Sensorium / Orientation: awake and alert Motor Exam: strength 5/5 throughout Psych mental status grossly normal Heart Score History: Slightly/Non-Suspicious ECG: Normal Age: >/= 65 years Risk Factors: >/= 3 Risk Factors or History of CAD Troponin: </= Normal Limit Score: 4 MDM MDM MDM Narrative Medical decision making narrative: EKG was obtained. On my interpretation, it showed a normal sinus rhythm with a rate of 61. [place] interval, QRS interval, and QTc intervals were all normal. [place] was normal. There are no acute ST or T wave changes. Portable 1 view chest x-ray was obtained. On my interpretation, lung gil are clear. There is normal cardiac silhouette. Bony thorax is normal. There is no acute process noted. Radiologist also interpreted the x-ray and agrees. CBC and basic metabolic profile were obtained and were essentially within normal limits. Initial high-sensitivity troponin was normal at 29. 2-hour repeat high-sensitivity troponin was also 29. Patient has a HEART score of 4 (2 for age and 2 for history of coronary artery disease). Patient was advised of her results. Patient was instructed to follow-up with her primary care physician in 3 to 5 days. Patient understood and was agreeable with the plan. All questions were answered. Lab Data Attestation: I reviewed the patient's lab results. Labs: Laboratory Results - last 24 hr 11/03/21 11/03/21 11/03/21 17:17 17:17 19:20 WBC 5.7 RBC 4.36 Hgb 13.0 Hct 40.7 MCV 93.3 MCH 29.8 MCHC 31.9 L RDW Std Deviation 44.7 H RDW Coeff of [place] 13.2 Plt Count 184 MPV 11.5 Immature Gran % (Auto) 0.400 Neut % (Auto) 61.9 Lymph % (Auto) 25.3 [place] % (Auto) 9.2 Eos % (Auto) 2.5 Baso % (Auto) 0.7 Absolute Neuts (auto) 3.5 Absolute Lymphs (auto) 1.43 Nucleated RBC % 0 Sodium 141 Potassium 4.0 Chloride 111 H Carbon Dioxide 28.0 Anion Gap 2 L BUN 25 H Creatinine 0.96 Estim Creat Clear Calc 43.74 Est GFR (MDRD) Af Amer 74 Est GFR (MDRD) Non-Af 61 BUN/Creatinine Ratio 26.0 H Glucose 102 Calcium 9.6 Troponin I High Sens 29 29 Radiography Chest X-Ray - ED: 1 View, Read by ED Physician, Read by Radiologist and Normal Diagnostic Testing: Clinical Impression(s) from Imaging Studies Chest X-Ray 11/03/21 18:15 IMPRESSION: No acute cardiopulmonary process. Electronically Signed: Juan Medrano MD at 19:03 EST , EKG Initial EKG: Attestation: I personally reviewed and interpreted this EKG as follows: Interpretation: Sinus Rhythm (61) and No Acute Injury Pattern Discharge Plan Triage Chief Complaint: Chest Pain ED Provider: Artie Santiago Dx/Rx/DC Orders Clinical Impression: Chest pain Instructions: ED Chest Pain, Uncertain Cause Prescriptions: No Action atorvastatin 40 mg tablet 40 mg PO QHS Qty: 90 RF: 3 carvedilol 3.125 mg tablet 3.125 mg PO BID Qty: 180 RF: 3 lisinopril 2.5 mg tablet 2.5 mg PO DAILY Qty: 90 RF: 3 Brilinta 90 mg tablet 90 mg PO BID Qty: 180 RF: 3 levetiracetam 1,000 mg tablet 1,000 mg PO DAILY RF: 0 pantoprazole 20 mg tablet,delayed release (DR/EC) 20 mg PO DAILY RF: 0 hydroxychloroquine 200 mg tablet 200 mg PO BID RF: 0 levetiracetam 1,000 mg tablet 1,500 mg PO QHS RF: 0 Gemtesa 75 mg Tablet 75 mg PO DAILY RF: 0 aspirin 81 mg tablet,delayed release (DR/EC) 81 mg PO DAILY Qty: 30 RF: 1 Primary Care Provider: Raffi Zimmer Referrals: Raffi Zimmer DO [Primary Care Provider] - 3-5 Days Disposition Disposition: Home, Self Care Discharge Date/Time: 11/03/21 20:44
[2021-11-03 20:43] VITALS: BP 144/78; PULSE 56; RESP 16; O2SAT 97
== END 2021-11-03 20:44 | disposition home or self-care (01) ==
PROVIDERS: Emergency Provider Emergency Medicine; PCP Family Medicine; Visit Provider Emergency Medicine
DX: R07.9 Chest pain, unspecified (principal); I25.10 Atherosclerotic heart disease of native coronary artery without angina pectoris; E66.9 Obesity, unspecified; Z86.16 Personal history of COVID-19; Z95.5 Presence of coronary angioplasty implant and graft
CPT/HCPCS: 71045; 80048; 84484; 85025; 93005; 99285; A4216

== ENCOUNTER 2021-11-27 15:45 | Outpatient (RCR) | payer MEDICARE, OTHER, SELFPAY ==
[2021-10-29 00:12] VITALS: BP 110/78
--- NOTE | 2021-11-22 13:09 | CR.ITP_ITS ---
Diagnosis - General Information Admitting Diagnosis: PCI with coronary stent Exercise - 60-day Assessment - Visit Date of Eval: 11/22/21 Session #:: 21 - Physician Prescribed Exercise Modalities: Treadmill, Airdyne, NuStep Frequency: 3x/week for 12 weeks [36 sessions] Intensity: 60-80% of age predicted maximum heart rate reserve Current METSs:: 2.5 Target Heart Rate:: 98-128 Current RPE:: 12 Maximum Excercise HR:: 98 Resting Blood Pressure: 120/74 Maximum Exercise Blood Pressure: 122/78 EKG Type: NSR to ST with frequent PAC's/sinus arrhythmia rare PVC's - Outcomes & Goals Goals:: Verbalizes understanding of THR, RPE & goal METS by session 6, Documents in home exercise log/reports 30 min aerobic 5 day/wk by DC, Demonstrates accurate pulse taking by DC, Other additional outcome/goals: see below - Intervention & Plan Exercise Program Goals: Instruct on personal THR & RPE, Instruct on MET level & personal MET goal, Show patient to take own pulse /validate performance until accurate, Instruct on home exercise, Other additional plan/int - 30-day Reassessments 30 day Reassessments:: Progressing - Physical Activity Home Exercise Physical Activity - Home Exercise: Safe Exercise, Warm-up, Self-monitoring, Cool-Down, Home Exercise > 30 min Daily, Sitting Time <3 hours/daily - Intervention & Plan Plan/Intervention: Instruct warm-up & cool-down if exercising at > 2 METs, Instruct on symptoms of exercise intolerance & actions to take, Instruct & monitor on saf, Assess intial functional capacity & safety risk, Other See below Nutrition - Initial Assessment Nutrition - 30-Day Assessment Nutrition - 60-Day Assessment - Program Goals Nutrition Program Goals: LDL <100 optimal. 100 - 129 Near optimal. 130 - 159 Borderline High. 160 - 189 High. Total Cholesterol <200 desirable. 200 - 239 Borderline High. >/= 240 High. HDL < 40 Low >/=60 High. Triglycerides <150 desirable. <199 optimal. VlDL 5 - 40. HgbA1C <7%. BMI <25 Patient has diagnosis of Hyperlipidemia (ICD E78)?: Yes - Visit Date of Assessment:: 11/22/21 Session #:: 21 - Cholesterol/Lipids Determine presence & major risk factors that modify LDL goal: Hypertension or hypertensive medication, Low HDL cholesterol <40 mg/dL*, Family history of premature CHD in Male < 55 years: female <65 yearsFa, Age men > 45 years; women >/= 55 years Outcomes/Goals: Pt IDs own risk factors & lifestyle modifications by Session 10, Verbalizes symptoms of angina & response by session 3., Pt independently manages, Other Additional Outcomes/Goals: Intervention/Plan: Advocate for lipid panel cholesterol medication if applicable, Instruct on personal lipid levels & lipid goals/NCEP guidelines, Instruct on cholesterol, Other additional plan/int 30-day Reassessments:: Progressing - Weight Mgt (Other Care) Height: 5 ft 2 in Weight:: 97.069 kg BMI: 39.1 Outcomes/Goals: Pt sets, maintains & shows weight loss goal & trend during rehab, Other additional outcomes/goals Intervention/Plan: Instruct on ideal BMI & set weight loss goal w/patient, Assist pt to ID & incorporate diet changes for weight loss by S9, Refer to Structured Weight Loss program as appropriate, Encourage goal of using 250- 300dcal per session for weight loss, Other additional plan/interventions 30 day Reassessments:: Progressing - Healthy Eating Habits Will attend diet classes:: Yes Outcomes/Goals:: Consume diet rich in vegs,fruits,whole grain/high fiber,fish,lean meat, Limit sat/trans fats,cholesterol & added salts & sugars, Other additional outcome/goals: Intervention/Plan:: Assess current eating habits, Other Additional plan/interventions 30-day Reassessments:: Progressing - Education Gave educational materials for:: Signs & symptoms of hypoglycemia, Signs & symptoms of hyperglycemia, Relate diabetes to coronary artery disease, Healthy eating Nutrition - 90-Day Assessment Nutrition - Final Assessment Medical - Initial Assessment Medical- 30-Day Assessment Medical- 60-Day Assessment - Visit Date of Eval: 11/22/21 Session #:: 21 - Medication Compliance Preventative Medication(s):: Aspirin, Ticagrelor/P2Y12 inhibitor, Statin/lipid, Beta riley H/O mental health issues: depression, anxiety, or addiction?: No Doesn?t believe in the benefits of treatment?: No Believes medications are unnecessary or harmful?: No Has a concern about medication side effects?: No Expresses concern over the cost of medications?: No Outcomes/Goals: Verbalizes medications,desired effect & common side effects @ DC, Pt self-reports following medication regimen, Keeps card in wallet w/medications listed by DC, Other additional outcome/goals: Interventions/plans: Instruct on medication effects & side effects, Review medication list w/patient every two weeks, Instruct importance of taking meds as ordered & assist problem solving, Other additional 30-day Reassessments:: Progressing - Tobacco Use Tobacco Use: Non-smoker - Hypertension Hypertension Diagnosis:: Hypertension ICD-10 I10 Resting Blood Pressure:: 120/74 [place] [employer] Hypertension Guidelines: [place] [employer] Hypertension Guidelines. Normal BP Less than 120/80. Elevated BP 120/80. Hypertension Stage 1: BP 130-139/80-89. Hypertesnion Stage 2: BP 140 or higher/90 or higher. Hypertension Crisis: BP higher than 180/120 Peak Exercise Blood Pressure:: 122/78 Outcomes/Goals: Able to verbalize/achieve optimal blood pressure <130/80, Incorporates diet changes & exercise for blood pressure control by DC, Other additional outcomes/goals 30 day Reassessments:: Progressing - Tobacco Cessation Referral Smoking Cessation Referral:: No Individual Education/Counseling:: No Education Schedule Given:: Yes Medical- 90-Day Assessment Medical - Final Assessment Psychosocial - Initial Assess Psychosocial - 30-Day Assess Psychosocial - 60-Day Assess - VIsit Date of Eval: 11/22/21 Session #:: 21 History of previous Mental disease:: No - Outcomes/Goals: See list Psychosocial Outcomes/Goals:: ID's personal stressors & 2 strategies to manage stress by discharge, Other Additional outcome/goals: - Intervention/Plan: See List Interventions/Plan:: Assess stressors,coping strategies & signs of derpression on admission, Instruct/assist pt to develop coping & personal stress Mgt strategies, Refer to Behavioral Health if appropriate, Refer to Physician if appropriate, Instruct patient to recognize signs & symptoms of depression, Instruct patient to recog, Other additional plan/intervention - 30-day Reassessments: 30 day Reassessments:: Progressing Psychosocial - 90-Day Assess Psychosocial - Final Assessmen Patient Health Questionnaire 60-Day Re-eval Assessment 1. Little interest or pleasure in doing things: Not at all 2. Feeling down, depressed, or hopeless: Not at all 3. Trouble falling or staying asleep, or sleeping too much: Several days 4. Feeling tired or having little energy: Several days 5. Poor appetite or overeating: Several days 6. Feeling bad about yourself -- or that you are a failure or have let yourself or your family down: Not at all 7. Trouble concentrating on things, such as reading the newspaper or watching television: Not at all 8. Moving or speaking so slowly that other people could have noticed. Or the opposite - being so fidgety or restless that you have been moving around a lot more than usual: Not at all 9. Thoughts that you would be better off , or of hurting yourself in some way: Not at all How difficult have these problems made it for you to do your work, take care of things at home, or get along with other people?: Not difficult at all Total Score: 3 Self-Efficacy 60-Day Re-eval Assessment We would like to know how confident you are in doing certain activities. Please select your confidence level for:: Select your confidence level for the following using the scale 1-10 where 1 is not at all confident and 10 is totally confident. Your score is the average of all 6 responses. Fatigue: How confident are you that you can keep the fatigue caused by your disease from interfering with the things you want to do? Select Number: 9 Physical Discomfort or Pain: How confident are you that you can keep the physical discomfort or pain of your disease from interfering with the things you want to do? Select Number: 8 Emotional Distress: How confident are you that you can keep the emotional distress caused by your disease from interfering with the things you want to do? Select Number: 8 Other Symptoms or Health Problems: How confident are you that you can keep other symptoms or health problems from interfering with the things you want to do? Select Number: 9 Different Tasks and Activities: How confident are you that you can do the diffe rent tasks and activities needed to manage your health condition so as to reduce your need to see a doctor? Select Number: 8 Medication: How confident are you that you can do things other than just taking medication to reduce how much your illness affects your everyday life? Select Number: 9 Total Score:: 8 Nutrition Survey
[2021-11-22 13:18] VITALS: BP 120/74; BP 122/78; BMI 39.1
== END 2021-11-28 23:59 | disposition home or self-care (01) ==
LOC: CR 15:45
PROVIDERS: PCP Family Medicine; Referring Provider Internal Medicine Cardiovascular Disease; Visit Provider Internal Medicine Cardiovascular Disease
DX: I21.02 ST elevation (STEMI) myocardial infarction involving left anterior descending coronary artery (principal); I25.10 Atherosclerotic heart disease of native coronary artery without angina pectoris; Z95.5 Presence of coronary angioplasty implant and graft
CPT/HCPCS: 93798

== ENCOUNTER 2021-12-27 15:45 | Outpatient (RCR) | payer MEDICARE, OTHER, SELFPAY ==
[2021-11-22 13:18] VITALS: BMI 39.1
[2021-11-29 00:16] VITALS: BP 120/74; BP 122/78
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
[2021-12-02 14:20] VITALS: BP 104/70; BP 138/72; BMI 39.2
== END 2021-12-28 23:59 ==
LOC: CR 15:45
PROVIDERS: PCP Family Medicine; Referring Provider Internal Medicine Cardiovascular Disease; Visit Provider Internal Medicine Cardiovascular Disease
DX: I25.10 Atherosclerotic heart disease of native coronary artery without angina pectoris (principal); I25.2 Old myocardial infarction; Z95.5 Presence of coronary angioplasty implant and graft
CPT/HCPCS: 93798

== ENCOUNTER 2021-12-30 10:55 | Outpatient (RCR) | payer MEDICARE, OTHER, SELFPAY ==
[2021-12-02 14:20] VITALS: BMI 39.2
[2021-12-29 00:18] VITALS: BP 104/70; BP 138/72
== END 2022-01-28 23:59 ==
LOC: CR 10:55
PROVIDERS: PCP Family Medicine; Referring Provider Internal Medicine Cardiovascular Disease; Visit Provider Internal Medicine Cardiovascular Disease
DX: I25.10 Atherosclerotic heart disease of native coronary artery without angina pectoris (principal); I25.2 Old myocardial infarction; Z95.5 Presence of coronary angioplasty implant and graft
CPT/HCPCS: 93798

== ENCOUNTER → 2022-01-06 | Outpatient (CLI) | payer MEDICARE, OTHER, SELFPAY ==
[2021-12-02 14:20] VITALS: BMI 39.2
--- NOTE | 2022-01-06 13:54 | ECHOL_ITS ---
Reason For Study: decreased EF Procedure This was a limited 2D transthoracic echocardiogram. The study was technically difficult. Exam performed in department. Left Ventricle Normal LV size. Mild concentric left ventricular hypertrophy. Left ventricular systolic function is normal. The estimated ejection fraction is 60 %. Stage 1 diastolic dysfunction. No regional wall motion abnormalities noted. Right Ventricle Normal RV size. Normal systolic function. Atria Normal left atrium. Normal right atrium. Mitral Valve Normal mitral valve. Tricuspid Valve Normal tricuspid valve. Aortic Valve Normal aortic valve. Pulmonic Valve Normal pulmonic valve. Great Vessels Normal aortic root. The pulmonary artery is normal size. Normal inferior vena cava. Pericardium/Pleural No pericardial effusion. MMode/2D Measurements & Calculations LVIDd: 4.6 cm IVSd: 1.2 cm LA dimension: 4.0 cm LVIDs: 2.9 cm LVPWd: 1.2 cm FS: 37.2 % LAV(MOD-bp): 42.2 ml LA A4 area: 16.1 cm2 RA A4 area: 9.7 cm2 LAV(MOD-bp) Indexed: 21.4 ml/m2 LAV(MOD-sp2): 38.1 ml LAV(MOD-sp4): 42.3 ml Time Measurements MV dec time: 0.16 sec Doppler Measurements & Calculations MV E max delvin: 93.5 cm/sec Lat Peak E' Delvin: 6.1 cm/sec Med Peak E' Delvin: 7.1 cm/sec MV A max delvin: 87.1 cm/sec E/E' lat: 15.2 E/E' med: 13.2 MV E/A: 1.1 MV V2 max: 94.4 cm/sec MV P1/2t max delvin: 95.4 cm/sec MV max P.6 mmHg MV P1/2t: 110.5 msec MV V2 mean: 53.4 cm/sec MV dec slope: 253.1 cm/sec2 MV mean P.4 mmHg MVA(P1/2t): 2.0 cm2 MV V2 VTI: 33.9 cm ECHO/Echo, Limited Study Interpretation Summary Normal LV size. Mild concentric left ventricular hypertrophy. Left ventricular systolic function is normal. The estimated ejection fraction is 60 %. Stage 1 diastolic dysfunction. Ordering Physician: Mami Aleman Referring Physician: Mami Aleman Performed By: Jass Duffy RCS
[2022-01-06 15:43] LABS: AST(SGOT) 21 U/L (15-37); Alanine Aminotransfer ALT/SGPT 26 U/L (13-56); Albumin, Serum 3.8 g/dL (3.2-5.0); Alkaline Phosphatase 85 U/L (45-117); Bilirubin, Direct 0.15 mg/dL (0.00-0.30); Cholesterol 136 mg/dL (200); Globulin 3.3 g/dL (2.2-4.2); High Density Lipoprotein 55 mg/dL; Protein, Total 7.1 g/dL (6.4-8.2); Triglycerides 108 mg/dL; Very Low Density Lipoprotein 22 mg/dL (5-40)
== END | disposition home or self-care (01) ==
PROVIDERS: PCP Family Medicine; Referring Provider Physician Assistant Medical; Visit Provider Physician Assistant Medical
DX: I10 Essential (primary) hypertension (principal); I25.10 Atherosclerotic heart disease of native coronary artery without angina pectoris; I25.5 Ischemic cardiomyopathy
CPT/HCPCS: 36415; 80061; 80076; 93308

== ENCOUNTER → 2022-06-25 | Outpatient (CLI) | payer MEDICARE, OTHER, SELFPAY ==
[2021-12-02 14:20] VITALS: BMI 39.2
--- NOTE | 2022-06-25 17:45 | STRESSREP ---
Stress Test Report Pharmacologic myocardial perfusion stress test. 71-year-old lady with a history of coronary artery disease previous myocardial infarction. Resting EKG demonstrates normal sinus rhythm with a rate of 72 bpm normal intervals are noted resting blood pressure 148/88 mmHg. 0.4 mg of regadenoson was infused per usual protocol followed by wrap intravenous saline flush injection continuous EKG monitoring was performed. The maximum heart rate attained was 108 bpm which was 71% of max impacted heart rate the maximum workload was 1 metabolic equivalent. At rest there were no ST or T wave changes noted to suggest abnormal flow reserve and at peak infusion nonspecific ST changes were noted with did not meet the criteria for ischemia. No clinical angina was noted. The final blood pressure was 138/80 mmHg. Myocardial perfusion protocol. 14.3 mCi of technetium 99m sestamibi was injected at rest. 0.4 mg of regadenoson was infused per usual protocol. Peak infusion 45.0 mCi of technetium 99m sestamibi was injected stress images were obtained stress and rest images were reconstructed in comparing the short axis vertical long and horizontal long axis. Gated images were also obtained to Perfusion SPECT analysis: Review of the stress images demonstrate a normal cardiac silhouette size. There is a defect noted in the apex of the ventricle with normal perfusion noted in the rest of the grewal. The resting images also demonstrate a defect in the apex. The above is suggestive of a previous apical infarct. No improvement is noted to suggest ischemia or reversibility. Gated SPECT analysis: The gated ejection fraction 67%. Conclusion: Pharmacologic myocardial perfusion stress test with evidence of previous apical infarct. Preserved ejection fraction. No ischemia noted.
== END | disposition home or self-care (01) ==
LOC: CVS 07:08
PROVIDERS: PCP Family Medicine; Referring Provider Internal Medicine Cardiovascular Disease; Visit Provider Internal Medicine Cardiovascular Disease
DX: I25.10 Atherosclerotic heart disease of native coronary artery without angina pectoris (principal); Z95.5 Presence of coronary angioplasty implant and graft
CPT/HCPCS: 78452; 93017; A9500; A4216; J2785

== ENCOUNTER → 2023-06-08 | Outpatient (CLI) | payer MEDICARE, OTHER, SELFPAY ==
[2021-12-02 14:20] VITALS: BMI 39.2
[2023-06-08 16:02] LABS: AST(SGOT) 22 U/L (15-37); Alanine Aminotransfer ALT/SGPT 25 U/L (13-56); Albumin, Serum 3.7 g/dL (3.2-5.0); Alkaline Phosphatase 83 U/L (45-117); Bilirubin, Direct 0.12 mg/dL (0.00-0.30); Cholesterol 136 mg/dL (200); Globulin 3.2 g/dL (2.2-4.2); High Density Lipoprotein 53 mg/dL; Protein, Total 6.9 g/dL (6.4-8.2); Triglycerides 137 mg/dL; Very Low Density Lipoprotein 27 mg/dL (5-40)
== END | disposition home or self-care (01) ==
LOC: LAB 14:54
PROVIDERS: PCP Family Medicine; Referring Provider Physician Assistant Medical; Visit Provider Physician Assistant Medical
DX: I10 Essential (primary) hypertension (principal); E78.5 Hyperlipidemia, unspecified; Z95.5 Presence of coronary angioplasty implant and graft
CPT/HCPCS: 36415; 80061; 80076

== ENCOUNTER → 2023-06-29 | Outpatient (CLI) | payer MEDICARE, OTHER, SELFPAY ==
[2021-12-02 14:20] VITALS: BMI 39.2
--- NOTE | 2023-06-29 13:50 | ECHOD_ITS ---
Reason For Study: PALPITATIONS Procedure This was a 2D Doppler, Color Flow transthoracic echocardiogram. The study was technically difficult. Definity deferred due to kidney surgery- patient unsure if they have partial or full kidney. Exam performed in department. Left Ventricle Normal LV size. Moderate concentric left ventricular hypertrophy. Left ventricular systolic function is normal. The estimated ejection fraction is 55 %. Stage 1 diastolic dysfunction. No regional wall motion abnormalities noted. Right Ventricle Normal RV size. Normal systolic function. Pulmonic Valve Normal pulmonic valve. Great Vessels Normal aortic root. The pulmonary artery is normal size. Normal inferior vena cava. Pericardium/Pleural No pericardial effusion. MMode/2D Measurements & Calculations LVIDd: 4.0 cm IVSd: 1.7 cm Ao root diam: 3.0 cm LVIDs: 2.8 cm LVPWd: 1.3 cm FS: 30.5 % LAV(MOD-bp): 62.9 ml LA dimension(2D): 4.0 cm LA A4 area: 21.2 cm2 LAV(MOD-bp) Indexed: 31.6 ml/m2 LAV(MOD-sp2): 51.9 ml LAV(MOD-sp4): 66.3 ml TAPSE: 2.1 cm RA A4 area: 18.6 cm2 Time Measurements MV dec time: 0.17 sec Doppler Measurements & Calculations MV E max delvin: 70.4 cm/sec Lat Peak E' Dlevin: 4.4 cm/sec Med Peak E' Delvin: 6.9 cm/sec MV A max delvin: 75.3 cm/sec E/E' lat: 15.9 E/E' med: 10.3 MV E/A: 0.94 MV V2 max: 84.5 cm/sec MV dec slope: 422.8 cm/sec2 Ao V2 max: 158.1 cm/sec MV max P.9 mmHg Ao max P.0 mmHg MV V2 mean: 54.6 cm/sec Ao V2 mean: 113.9 cm/sec MV mean P.3 mmHg Ao mean P.9 mmHg MV V2 VTI: 33.1 cm Ao V2 VTI: 37.7 cm AV (velocity ratio): 0.77 LV V1 max: 108.2 cm/sec PA V2 max: 87.2 cm/sec LV V1 max P.7 mmHg PA V2 mean: 69.9 cm/sec LV V1 mean P.5 mmHg LV V1 mean: 71.1 cm/sec LV V1 VTI: 29.1 cm ECHO/Echo Complete Interpretation Summary Normal LV size. Moderate concentric left ventricular hypertrophy. Left ventricular systolic function is normal. The estimated ejection fraction is 55 %. Stage 1 diastolic dysfunction. Ordering Physician: Mami Aleman Referring Physician: Mami Aleman Performed By: Shyanne Hardy RCS
== END | disposition home or self-care (01) ==
LOC: CVS 13:48
PROVIDERS: PCP Family Medicine; Referring Provider Physician Assistant Medical; Visit Provider Physician Assistant Medical
DX: R00.2 Palpitations (principal)
CPT/HCPCS: 93306

== ENCOUNTER → 2024-02-02 | Outpatient (CLI) | payer MEDICARE, OTHER, SELFPAY ==
[2021-12-02 14:20] VITALS: BMI 39.2
[2024-02-02 10:57] LABS: AST(SGOT) 21 U/L (15-37); Alanine Aminotransfer ALT/SGPT 21 U/L (13-56); Albumin, Serum 3.6 g/dL (3.2-5.0); Alkaline Phosphatase 72 U/L (45-117); Bilirubin, Direct 0.13 mg/dL (0.00-0.30); Cholesterol 130 mg/dL (200); Globulin 3.2 g/dL (2.2-4.2); High Density Lipoprotein 51 mg/dL; Protein, Total 6.8 g/dL (6.4-8.2); Triglycerides 95 mg/dL; Very Low Density Lipoprotein 19 mg/dL (5-40)
== END | disposition home or self-care (01) ==
LOC: LAB 10:06
PROVIDERS: PCP Family Medicine; Referring Provider Physician Assistant Medical; Visit Provider Physician Assistant Medical
DX: E78.00 Pure hypercholesterolemia, unspecified (principal)
CPT/HCPCS: 36415; 80061; 80076

== ENCOUNTER → 2024-08-30 | Outpatient (CLI) | payer MEDICARE, OTHER, SELFPAY ==
[2021-12-02 14:20] VITALS: BMI 39.2
[2024-08-30 10:32] LABS: Absolute Lymphocyte Count 1.62 X10^3/uL (0.83-4.51); Absolute Neutrophil Count 3.1 X10^3/uL (2.0-7.7); Basophil# 0.05 X10^3/uL; Basophil% 0.9 % (0-1); Eosinophil# 0.26 X10^3/uL; Eosinophils% 4.7 % (0-5); Hematocrit 40.7 % (37-47); Hemoglobin 13.1 g/dL (12.0-15.0); Lymphocyte # 1.62 X10^3/ul (0.83-4.51); Lymphocyte % 29.5 % (19-41); Mean Corp Hgb Conc 32.2 g/dL (32-36); Mean Corpuscular Hgb 29.8 pg (27.0-32.0); Mean Corpuscular Volume 92.5 fL (81-99); Monocyte# 0.49 X10^3/uL; Monocyte% 8.9 % (0-10); NRBC Flagged by Analyzer 0 % (0-5); Neutrophil # 3.07 X10^3/uL (2.7-7.7); Neutrophil % 55.8 % (47-70); Platelet Count 186 K/mm3 (150-450); RBC Distribution Width CV 12.6 % (11.6-14.6); White Blood Count 5.5 K/mm3 (4.4-11.0)
[2024-08-30 10:56] LABS: ALB/GLOB Ratio 1.1 RATIO (0.9-2.4); AST(SGOT) 19 U/L (15-37); Alanine Aminotransfer ALT/SGPT 21 U/L (13-56); Albumin, Serum 3.6 g/dL (3.2-5.0); Alkaline Phosphatase 81 U/L (45-117); Anion Gap 4 (5-15); BUN 18 mg/dL (7-18); Bilirubin, Direct 0.13 mg/dL (0.00-0.30); Calcium,Total 9.2 mg/dL (8.5-10.1); Chloride 111 mmol/L (98-107); EST Glomerular Filtration Rate 58 mL/min (>60); Est Glom Filt Rate - Afr Amer 70 mL/min (>60); Globulin 3.4 g/dL (2.2-4.2); Glucose 102 mg/dL (74-106); Potassium 4.1 mmol/L (3.5-5.1); Sodium Level 143 mmol/L (136-145)
== END | disposition home or self-care (01) ==
LOC: LAB 09:48
PROVIDERS: PCP Family Medicine; Referring Provider Physician Assistant Medical; Visit Provider Physician Assistant Medical
DX: I10 Essential (primary) hypertension (principal); Z95.5 Presence of coronary angioplasty implant and graft
CPT/HCPCS: 36415; 80053; 82248; 85025

== ENCOUNTER → 2025-05-26 | Outpatient (CLI) | payer MEDICARE, OTHER, SELFPAY ==
[2021-12-02 14:20] VITALS: BMI 39.2
== END | disposition home or self-care (01) ==
PROVIDERS: PCP Family Medicine
DX: R94.4 Abnormal results of kidney function studies (principal)
CPT/HCPCS: 36415; 82565

== ENCOUNTER → 2025-06-29 | Outpatient (CLI) | payer MEDICARE, OTHER, SELFPAY ==
[2021-12-02 14:20] VITALS: BMI 39.2
[2025-06-29 15:30] LABS: AST(SGOT) 25 U/L (<=31); Alanine Aminotransfer ALT/SGPT 18 U/L (<=34); Albumin, Serum 4.2 g/dL (3.4-4.8); Alkaline Phosphatase 80 U/L (35-104); Anion Gap 9 (5-15); BUN 24 mg/dL (4-19); BUN/Creat Ratio 20.8 RATIO (10-20); Calcium,Total 9.8 mg/dL (7.6-11.0); Carbon Dioxide 25.9 mmol/L (21.0-32.0); Chloride 107 mmol/L (98-108); Cholesterol 150 mg/dL (<=200); Globulin 3.0 g/dL (2.2-4.2); Glucose 96 mg/dL (70-99); Low Density Lipoprotein Calc. 74 mg/dL; Potassium 4.6 mmol/L (3.3-5.1); Triglycerides 135 mg/dL; Very Low Density Lipoprotein 27 mg/dL (5-40); cholesterol:hdl ratio screen 2.88
== END | disposition home or self-care (01) ==
LOC: LAB 13:54
PROVIDERS: PCP Family Medicine; Referring Provider Physician Assistant Medical; Visit Provider Physician Assistant Medical
DX: E78.5 Hyperlipidemia, unspecified (principal); I10 Essential (primary) hypertension; I25.10 Atherosclerotic heart disease of native coronary artery without angina pectoris; Z95.5 Presence of coronary angioplasty implant and graft
CPT/HCPCS: 36415; 80053; 80061